=== PATIENT | female | born 1980 | race Caucasian/White ===

== ENCOUNTER 2018-11-10 17:18 | Emergency (ER) | payer MEDICAID, OTHER ==
[~2018-11-10] VITALS: Ht 160 cm; Wt 72.6 kg
--- NOTE | 2018-11-10 17:42 | ED General ---
General Chief Complaint: Abdominal/GI Problems Stated Complaint: BODY ACHES,VOMITING Source of Information: Patient Exam Limitations: No Limitations (SONIA IVEY MD) History of Present Illness Date Seen by Provider: Nov 10, 2018 Time Seen by Provider: 17:37 Initial Comments Onset yesterday of mild throbbing pulsating headache, myalgia, arthralgia, decreased appetite, nausea, diaphoresis this morning and emesis x 6 of fluid contents. She describes cramping abdominal pain, but her menses began yesterday also, so no real focal abdominal pain. Denies prodrome other than abscess left buttock three days ago. Has had these before but not as bad. Unknown history of MRSA. Has uses warm compresses to express discharge. Exam demonstrates pointing abscess will some dependent firmness gradient dependent tissue c/w ad jacent cellulitis. Denies respiratory symptoms. Lightheaded on standing this morning. Appetite change and suppressed due to nausea. No change in bowels and no dysuria. Severity: Moderate Associated Systoms: Diaphoresis, Headaches, Loss of Appetite, Malaise, Nausea/Vomiting, Weakness (SONIA IVEY MD) Allergies and Home Medications Allergies Coded Allergies: No Known Drug Allergies (Unverified , 11/10/18) Home Medications Clindamycin HCl 150 Mg Capsule, 300 MG PO Q6H Prescribed by: EVELYN STEVENS on 11/10/181844 Famotidine 20 Mg Tablet, 20 MG PO BID Prescribed by: EVELYN STEVENS on 11/10/181844 Ondansetron 4 Mg Tab.rapdis, 4 MG PO Q6H PRN for NAUSEA/VOMITING Prescribed by: EVELYN STEVENS on 11/10/181844 Patient Home Medication List Home Medication List Reviewed: Yes (EVELYN STEVENS DO) Review of Systems Review of Systems EENTM: see HPI Respiratory: no symptoms reported Cardiovascular: see HPI Gastrointestinal: see HPI Genitourinary: no symptoms reported : No Musculoskeletal: see HPI, joint pain, muscle pain Skin: see HPI, lesions, other Psychiatric/Neurological: No Symptoms Reported Hematologic/Lymphatic: No Symptoms Reported Immunological/Allergic: no symptoms reported (SONIA IVEY MD) Constitutional: see HPI (EVELYN STEVENS DO) All Other Systems Reviewed Negative Unless Noted: Yes (SONIA IVEY MD) Physical Exam Vital Signs Vital Signs - First Documented 11/10/18 17:20 Temp 99.8 Pulse 92 Resp 20 B/P (MAP) 109/51 (70) Pulse Ox 98 O2 Delivery Room Air (EVELYN STEVENS DO) Vital Signs Capillary Refill : (SONIA IVEY MD) Height, Weight, BMI Height: '" Weight: lbs. oz. kg; BMI Method: General Appearance: No Apparent Distress Eyes: Bilateral Eye Normal Inspection, Bilateral Eye PERRL, Bilateral Eye EOMI HEENT: PERRL/EOMI, Normal ENT Inspection, Moist Mucous Membranes Neck: Full Range of Motion, Normal Inspection, Non Tender, Supple Respiratory: No Accessory Muscle Use, No Respiratory Distress Cardiovascular: Regular Rate, Rhythm, No Edema Gastrointestinal: Non Tender Back: Normal Inspection Extremity: Normal Capillary Refill, Normal Inspection, Normal Range of Motion, Non Tender, No Calf Tenderness, No Pedal Edema Neurologic/Psychiatric: Alert, Oriented x3, No Motor/Sensory Deficits, Normal Mood/Affect Skin: Erythema (SONIA IVEY MD) Procedures/Interventions I&D : Blade Size: 11 Progress Obtained fairly large amount of purulent discharge. C&S was obtained. Was probed for loculations. Deferred placing packing. (EVELYN STEVENS DO) Progress/Results/Core Measures Suspected Sepsis SIRS Temperature: Pulse: Respiratory Rate: Blood Pressure / Mean: (SONIA IVEY MD) Results/Orders Lab Results Laboratory Tests Test 11/10/18 17:30 Range/Units White Blood Count 10.7 4.3-11.0 10^3/uL Red Blood Count 4.31 L 4.35-5.85 10^6/uL Hemoglobin 9.9 L 11.5-16.0 G/DL Hematocrit 33 L 35-52 % Mean Corpuscular Volume 78 L 80-99 FL Mean Corpuscular Hemoglobin 23 L 25-34 PG Mean Corpuscular Hemoglobin Concent 30 L 32-36 G/DL Red Cell Distribution Width 16.6 H 10.0-14.5 % Platelet Count 333 130-400 10^3/uL Mean Platelet Volume 9.4 7.4-10.4 FL Neutrophils (%) (Auto) 77 H 42-75 % Lymphocytes (%) (Auto) 15 12-44 % Monocytes (%) (Auto) 6 0-12 % Eosinophils (%) (Auto) 1 0-10 % Basophils (%) (Auto) 1 0-10 % Neutrophils # (Auto) 8.3 H 1.8-7.8 X 10^3 Lymphocytes # (Auto) 1.6 1.0-4.0 X 10^3 Monocytes # (Auto) 0.7 0.0-1.0 X 10^3 Eosinophils # (Auto) 0.1 0.0-0.3 10^3/uL Basophils # (Auto) 0.1 0.0-0.1 10^3/uL Neutrophils % (Manual) 66 % Lymphocytes % (Manual) 19 % Monocytes % (Manual) 6 % Eosinophils % (Manual) 2 % Band Neutrophils 7 % Hypochromasia 2+ Microcytosis 3+ Elliptocytes SLIGHT Sodium Level 139 135-145 MMOL/L Potassium Level 3.7 3.6-5.0 MMOL/L Chloride Level 100 98-107 MMOL/L Carbon Dioxide Level 23 21-32 MMOL/L Anion Gap 16 H 5-14 MMOL/L Blood Urea Nitrogen 6 L 7-18 MG/DL Creatinine 0.69 0.60-1.30 MG/DL Estimat Glomerular Filtration Rate > 60 BUN/Creatinine Ratio 9 Glucose Level 97 70-105 MG/DL Calcium Level 9.3 8.5-10.1 MG/DL Corrected Calcium 8.5-10.1 MG/DL Total Bilirubin 0.5 0.1-1.0 MG/DL Aspartate Amino Transf (AST/SGOT) 18 5-34 U/L Alanine Aminotransferase (ALT/SGPT) 14 0-55 U/L Alkaline Phosphatase 80 40-136 U/L Total Protein 7.9 6.4-8.2 GM/DL Albumin 4.8 H 3.2-4.5 GM/DL (EVELYN STEVENS DO) My Orders Orders - EVELYN STEVENS DO Wound Culture (11/10/18 18:28) Ondansetron Injection (Zofran Injectio (11/10/18 18:30) Famotidine Injection (Pepcid Injection) (11/10/18 18:30) Clindamycin 900 Mg/50 Ml Ivpb (Cleocin P (11/10/18 18:30) (EVELYN STEVENS DO) Medications Given in ED (EVELYN STEVENS DO) Vital Signs/I&O 7/22/19 00:00 Intake Total 50 ml Balance 50 ml (EVELYN STEVENS DO) Vital Signs/I&O Capillary Refill : (SONIA IVEY MD) Departure Impression Primary Impression: Abscess Additional Impressions: Anemia N&V (nausea and vomiting) Disposition: HOME, SELF-CARE Condition: Improved Departure-Patient Inst. Referrals: MAITE AGUERO MD (PCP/Family) Primary Care Physician Patient Instructions: Abscess Incision and Drainage (DC), Anemia Caused by Low Iron, Nausea and Vomiting, Adult Scripts Clindamycin HCl (Clindamycin HCl) 150 Mg Capsule 300 MG PO Q6H for 10 Days, #80 CAP 0 Refills Prov: EVELYN STEVENS DO 11/10/18 Ondansetron (Ondansetron Odt) 4 Mg Tab.rapdis 4 MG PO Q6H PRN for NAUSEA/VOMITING, #10 TAB 0 Refills Prov: EVELYN STEVENS DO 11/10/18 Famotidine (Pepcid) 20 Mg Tablet 20 MG PO BID for 5 Days, #10 TAB 0 Refills Prov: EVELYN STEVENS DO 11/10/18 SONIA IVEY MD Nov 10, 2018 17:42 EVELYN STEVENS DO Nov 10, 2018 18:41
[2018-11-10 18:01] LABS: HEMATOCRIT 33 % (35-52); HEMOGLOBIN 9.9 G/DL (11.5-16.0); MEAN CORPUSCULAR HEMOGLOBIN 23 PG (25-34); WHITE BLOOD COUNT 10.7 10^3/uL (4.3-11.0)
[2018-11-10 18:02] LABS: BAND NEUTROPHILS 7 %; BASOPHILS # (AUTO) 0.1 10^3/uL (0.0-0.1); BASOPHILS % (AUTO) 1 % (0-10); EOSINOPHILS # (AUTO) 0.1 10^3/uL (0.0-0.3); EOSINOPHILS % (AUTO) 1 % (0-10); LYMPHOCYTES # (AUTO) 1.6 X 10^3 (1.0-4.0); LYMPHOCYTES % (AUTO) 15 % (12-44); MEAN CORPUSCULAR HGB CONC 30 G/DL (32-36); MEAN CORPUSCULAR VOLUME 78 FL (80-99); MEAN PLATELET VOLUME 9.4 FL (7.4-10.4); MONOCYTES # (AUTO) 0.7 X 10^3 (0.0-1.0); MONOCYTES % (AUTO) 6 % (0-12); NEUTROPHILS # (AUTO) 8.3 X 10^3 (1.8-7.8); NEUTROPHILS % (AUTO) 77 % (42-75); NEUTROPHILS % (MANUAL) 66 %; PLATELET COUNT 333 10^3/uL (130-400); RED CELL DISTRIBUTION WIDTH 16.6 % (10.0-14.5)
[2018-11-10 18:03] LABS: ELLIPT/OVALOCYTES SLIGHT; EOSINOPHILS % (MANUAL) 2 %; HYPOCHROMASIA 2+; LYMPHOCYTES % (MANUAL) 19 %; MICROCYTOSIS 3+; MONOCYTES % (MANUAL) 6 %
[2018-11-10 18:10] LABS: ALKALINE PHOSPHATASE 80 U/L (40-136); BILIRUBIN,TOTAL 0.5 MG/DL (0.1-1.0); BUN/CREATININE RATIO 9; CALCIUM 9.3 MG/DL (8.5-10.1); CARBON DIOXIDE 23 MMOL/L (21-32); CHLORIDE 100 MMOL/L (98-107); CREATININE SERUM 0.69 MG/DL (0.60-1.30); GFR ESTIMATED > 60; GLUCOSE 97 MG/DL (70-105); POTASSIUM 3.7 MMOL/L (3.6-5.0); SODIUM 139 MMOL/L (135-145)
[2018-11-10 18:11] LABS: ALANINE AMINOTRANSFERASE 14 U/L (0-55); ALBUMIN 4.8 GM/DL (3.2-4.5); TOTAL PROTEIN 7.9 GM/DL (6.4-8.2)
[2018-11-10] MEDS ORDERED: ONDANSETRON 4 MG/2 ML (SDV) Z0FRAN IVP ONE (18:30)
[2018-11-10] MEDS ORDERED: FAMOTIDINE 20MG/2ML IV (PEPCID) ONE (18:30)
[2018-11-10] MEDS ORDERED: ONDANSETRON 4 MG/2 ML (SDV) Z0FRAN ONE (18:30)
[2018-11-10] MEDS ORDERED: FAMOTIDINE 20MG/2ML IV (PEPCID) IVP ONE (18:30)
[2018-11-10] MEDS ORDERED: CLINDAMYCIN 900 MG/50 ML IVPB 50 ML IV ONE ×2 (18:30)
[2018-11-10] MEDS ORDERED: ONDA4TAB11 PO (18:45)
[2018-11-10] MEDS ORDERED: FAMO-119 PO (18:45)
[2018-11-10] MEDS ORDERED: CLIN150C17 PO (18:45)
[2018-11-10 19:11] VITALS: BP 110/52
== END 2018-11-10 19:11 | disposition home or self-care (01) ==
LOC: ER FS 17:18
DX: D64.9 Anemia, unspecified (principal); L02.31 Cutaneous abscess of buttock; R11.2 Nausea with vomiting, unspecified
CPT/HCPCS: 10060; 36415; 80053; 85007; 85027; 87070; 87077; 87205; 96365; 96375

== ENCOUNTER 2018-12-04 19:03 | Emergency (ER) | payer MEDICAID, OTHER ==
[~2018-12-04] VITALS: Ht 160 cm; Wt 72.6 kg
[~2018-12-04 19:03] MED LIST: CLIN150C17 PO; FAMO-119 PO; ONDA4TAB11 PO
--- NOTE | 2018-12-04 19:09 | ED General ---
General Chief Complaint: Cough/Cold/Flu Symptoms Stated Complaint: COUGH, CHEST PAIN, SOB, THROAT PAIN History of Present Illness Date Seen by Provider: Dec 04, 2018 Time Seen by Provider: 19:09 Initial Comments Patient presenting to emergency department for evaluation of a cough that has been going on for the past several days in addition to sore throat. Patient says the cough is nonproductive and she has had no fevers or chills. She denies any history of asthma or lung disease but she does smoke cigarettes. She says that she is coughing so months that it causes her chest hurt when she coughs. She is in no respiratory distress and oxygen saturation of 99%. Allergies and Home Medications Allergies Coded Allergies: No Known Drug Allergies (Unverified , 11/10/18) Home Medications Clindamycin HCl 150 Mg Capsule, 300 MG PO Q6H Prescribed by: EVELYN STEVENS on 11/10/181844 Famotidine 20 Mg Tablet, 20 MG PO BID Prescribed by: EVELYN STEVENS on 11/10/181844 Ondansetron 4 Mg Tab.rapdis, 4 MG PO Q6H PRN for NAUSEA/VOMITING Prescribed by: EVELYN STEVENS on 11/10/181844 Patient Home Medication List Home Medication List Reviewed: Yes Review of Systems Review of Systems Constitutional: no symptoms reported EENTM: throat pain Respiratory: cough Cardiovascular: chest pain Gastrointestinal: no symptoms reported Musculoskeletal: no symptoms reported Skin: no symptoms reported Psychiatric/Neurological: No Symptoms Reported Past Kaogneq-Onmftv-Zgogiv Hx Patient Social History Type Used: Cigarettes 2nd Hand Smoke Exposure: No Recent Foreign Travel: No Contact w/Someone Who Travel: No Recent Hopitalizations: No Seasonal Allergies Seasonal Allergies: No Past Medical History Surgeries: Yes Appendectomy, Gallbladder, Tonsillectomy, Tubal Ligation Respiratory: No Cardiac: No Neurological: 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 oz. 72.725685bi; BMI Method:Stated General Appearance: No Apparent Distress, WD/WN Eyes: Bilateral Eye Normal Inspection HEENT: Other (pharyngeal erythema with postnasal drip noted) Neck: Non Tender, Supple Respiratory: No Accessory Muscle Use, No Respiratory Distress, Wheezing (in all lung burgos) Cardiovascular: Regular Rate, Rhythm Extremity: Normal Capillary Refill Neurologic/Psychiatric: Alert, Oriented x3 Progress/Results/Core Measures Suspected Sepsis SIRS Temperature: Pulse: Respiratory Rate: Blood Pressure / Mean: Results/Orders My Orders Orders - SONIA BACON DO Albuterol/Ipra Inhalation Soln (Duoneb I (12/04/18 19:15) Svn Small Volume Nebulizer (12/04/18 19:13) Prednisone Tablet (Deltasone Tablet) (12/04/18 19:15) Chest Pa/Lat (2 View) (12/04/18 19:13) Medications Given in ED Current Medications Medications Dose Ordered Sig/Zahraa Route Start Time Stop Time Status Last Admin Dose Admin Albuterol/ Ipratropium 3 ml ONCE ONCE INH 12/04/18 19:15 12/04/18 19:16 DC 12/04/18 19:20 3 ML Prednisone 50 mg ONCE ONCE PO 12/04/18 19:15 12/04/18 19:16 DC 12/04/18 19:22 50 MG Vital Signs/I&O 12/04/18 12/04/18 19:10 19:26 Temp 98.8 Pulse 96 Resp 20 B/P (MAP) 135/63 (87) Pulse Ox 99 99 O2 Delivery Room Air Capillary Refill : Progress Note : Progress Note Patient with respiratory infection and has inspiratory and expiratory wheezing. Will treat with prednisone breathing treatments and check chest x-ray to evaluate for possible pneumonia. X-ray negative for pneumonia but patient does have signs and symptoms of bronchitis. Will go ahead and treat with prednisone and albuterol and Zithromax Nasonex. I told her follow with her primary care provider within 2-3 days to ensure improvement and come back to the ED sooner with worsening pain shortness of breath with or general concerns. Patient also told to avoid smoking. Patient aware and agreeable with plan for discharge and verbalized understanding of the need for short-term follow-up and strict ED return precautions discussed as above. Departure Impression Primary Impression: Bronchitis Disposition: 01 HOME, SELF-CARE Condition: Stable Departure-Patient Inst. Referrals: MAITE AGUERO MD (PCP/Family) Primary Care Physician Patient Instructions: Acute Bronchitis, Adult (DC) Add. Discharge Instructions: All discharge instructions reviewed with patient and/or family. Voiced understanding. Use OTC Nasonex. Scripts Azithromycin (Zithromax) 250 Mg Tablet 250 MG PO DAILY for 5 Days, #6 TAB Prov: SONIA BACON DO 12/04/18 Albuterol Sulfate (PROAIR HFA) 1 Puff Puff 2 PUFF IH Q4H, #1 INHALER 1 PUFF = 90 MCG Prov: SONIA BACON DO 12/04/18 Prednisone (Prednisone) 20 Mg Tab 40 MG PO DAILY for 4 Days, #8 TAB 0 Refills Prov: SONIA BACON DO 12/04/18 Work/School Note: Work Release Form Date Seen in the Emergency Department: Dec 04, 2018 Return to Work: Dec 06, 2018 SONIA BACON DO Dec 04, 2018 19:09
[2018-12-04] MEDS ORDERED: predniSONE 20 MG TAB PO ONE (19:15)
[2018-12-04] MEDS ORDERED: RT-ALBUTEROL/IPRATROPIUM 3 ML (DUONEB) VIAL INH ONE (19:15)
--- NOTE | 2018-12-04 19:26 | Diagnostic Imaging Report ---
EXAMINATION: Chest, 2 views. HISTORY: Sore throat and cough. COMPARISON: No comparison available. FINDINGS: The lungs are clear. No edema. No pneumonia. No pleural effusion. No pneumothorax. Heart is normal in size. IMPRESSION: Clear lungs. Dictated by: Dictated on workstation # [id number]
[2018-12-04] MEDS ORDERED: RT-ALBUINH IH (19:41)
[2018-12-04] MEDS ORDERED: AZIT250T PO (19:41)
[2018-12-04] MEDS ORDERED: PRD20T PO (19:41)
[2018-12-04 19:44] VITALS: BP 135/63
== END 2018-12-04 19:45 | disposition home or self-care (01) ==
LOC: EDUNIT# 19:03 → ER FS 19:05
DX: J40 Bronchitis, not specified as acute or chronic (principal); F17.210 Nicotine dependence, cigarettes, uncomplicated; Z90.49 Acquired absence of other specified parts of digestive tract; Z98.51 Tubal ligation status; Z90.89 Acquired absence of other organs
CPT/HCPCS: 71046; 94640

== ENCOUNTER 2019-03-11 15:15 | Emergency (ER) | payer MEDICAID ==
[~2019-03-11] VITALS: Ht 160 cm; Wt 75.4 kg
[~2019-03-11 15:15] MED LIST changes: +AZIT250T PO; +PRD20T PO; +RT-ALBUINH IH
--- NOTE | 2019-03-11 15:43 | ED Upper Extremity ---
General Chief Complaint: Upper Extremity Stated Complaint: RT ELBOW PAIN Source: patient Exam Limitations: no limitations History of Present Illness Date Seen by Provider: Mar 11, 2019 Time Seen by Provider: 15:15 Initial Comments The patient is a pleasant 39-year-old female who presents for evaluation of right lateral elbow discomfort which has been bothering her for a month. 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 She does not recall a specific injury. She describes it as more of a soreness than a severe pain. She does have full range of motion of the right elbow she denies any previous problems with the elbow. She is alert and oriented 4, calm, and appears to be in no distress this time. She denies fevers or chills, elbow swelling, or any other complaints. Pain/Injury Location: right elbow Method of Injury: unknown Modifying Factors: Improves With Cold Therapy, Improves With Movement (makes it worse) Allergies and Home Medications Allergies Coded Allergies: No Known Drug Allergies (Unverified , 11/10/18) Home Medications Albuterol Sulfate 1 Puff Puff, 2 PUFF IH Q4H 1 PUFF = 90 MCG Prescribed by: SONIA BACON on 12/04/181940 Azithromycin 250 Mg Tablet, 250 MG PO DAILY Prescribed by: SONIA BACON on 12/04/181940 Clindamycin HCl 150 Mg Capsule, 300 MG PO Q6H Prescribed by: EEVLYN STEVENS on 11/10/181844 Famotidine 20 Mg Tablet, 20 MG PO BID Prescribed by: EVELYN STEVENS on 11/10/181844 Ondansetron 4 Mg Tab.rapdis, 4 MG PO Q6H PRN for NAUSEA/VOMITING Prescribed by: EVELYN STEVENS on 11/10/181844 Prednisone 20 Mg Tab, 40 MG PO DAILY Prescribed by: SONIA BACON on 12/04/181940 Patient Home Medication List Home Medication List Reviewed: Yes Review of Systems Constitutional: no symptoms reported EENTM: no symptoms reported Respiratory: no symptoms reported Cardiovascular: no symptoms reported Gastrointestinal: no symptoms reported Genitourinary: no symptoms reported Musculoskeletal: joint pain (right elbow) Skin: no symptoms reported Psychiatric/Neurological: No Symptoms Reported All Other Systems Reviewed Negative Unless Noted: Yes Past Jiaqpbg-Gifgnj-Udfeaq Hx Past Med/Social Hx: Reviewed Nursing Past Med/Soc Hx Patient Social History Alcohol Use: Denies Use Recreational Drug Use: No Smoking Status: Current Everyday Smoker Type Used: Cigarettes 2nd Hand Smoke Exposure: No Recent Foreign Travel: No Recent Hopitalizations: No Physical Abuse: No Sexual Abuse: No Mistreated: No Fear: No Seasonal Allergies Seasonal Allergies: No Past Medical History Surgeries: Yes Appendectomy, Gallbladder, Tonsillectomy, Tubal Ligation Respiratory: No Cardiac: No Neurological: 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 oz. 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, no motor/sensory deficits, alert, normal mood/affect, oriented x 3 Skin: normal color, warm/dry Progress/Results/Core Measures Results/Orders My Orders Orders - CECILY BACA DO Elbow 3 View Right (03/11/19 15:27) Ice: Apply To Affected Area (03/11/19 15:27) Ibuprofen Tablet (Motrin Tablet) (03/11/19 15:45) Medications Given in ED Current Medications Medications Dose Ordered Sig/Zahraa Route Start Time Stop Time Status Last Admin Dose Admin Ibuprofen 600 mg ONCE ONCE PO 03/11/19 15:45 03/11/19 15:46 DC 03/11/19 15:38 600 MG Vital Signs/I&O 03/11/19 15:20 Temp 36.3 Pulse 84 Resp 16 B/P (MAP) 134/96 (109) Pulse Ox 99 O2 Delivery Room Air Progress Progress Note : Progress Note @1553 - Patient updated on imaging results which were unremarkable. The patient has been placed in an Jag wrap. Advised patient to purchase a tennis elbow brace at a pharmacy for additional support. Advised patient to follow-up with orthopedics and/or her primary care physician in the next 1-2 days. Advised her to return to the emergency department immediately for new or worsening symptoms. The patient expresses verbal understanding and agreement and is stable for discharge. Diagnostic Imaging Diagonstic Imaging: Xray Comments [facility]. POS [place], [place] POS NAME: [facility] REC#: [id number] PT STATUS: REG ER : 1980 PHYSICIAN: CECILY BACA DO ADMIT DATE: 03/11/19/ER FS Draft POSDate of Exam:03/11/19 ELBOW 3 VIEW RIGHT INDICATION: Right elbow pain. TIME OF EXAM: 3:12 p.m. FINDINGS: Three views of the right elbow were obtained. Alignment is normal. Joint spaces are well maintained. No fracture, dislocation, or effusion is seen. IMPRESSION: No acute bony abnormality is detected. Dictated on workstation # [id number] Dict: 03/11/19 1545 Trans: 03/11/19 1546 [id number] Interpreted by: MEG EDOUARD MD Electronically signed by: Departure Impression Primary Impression: Lateral epicondylitis, right elbow Additional Impression: Right elbow pain Disposition: 01 HOME, SELF-CARE Condition: Stable Departure-Patient Inst. Decision time for Depature: 15:49 Referrals: MAITE AGUERO MD (PCP/Family) Primary Care Physician KATIE WELLS MD Patient Instructions: Lateral Epicondylitis (DC), Elbow Sprain (DC) Add. Discharge Instructions: Follow-up with your doctor or with Dr. Wells from orthopedics in the next 1-2 days. As discussed you may want to apply a tennis elbow brace to your right elbow for additional comfort. Return to the emergency department for new or worsening symptoms. Take ibuprofen at home for pain relief. Work/School Note: Work Release Form Date Seen in the Emergency Department: Mar 11, 2019 Return to Work: Mar 12, 2019 CECILY BACA DO Mar 11, 2019 15:43 POS
[2019-03-11] MEDS ORDERED: IBUPROFEN 600 MG (MOTRIN) TAB PO ONE (15:45)
--- NOTE | 2019-03-11 15:46 | Diagnostic Imaging Report ---
INDICATION: Right elbow pain. TIME OF EXAM: 3:12 p.m. FINDINGS: Three views of the right elbow were obtained. Alignment is normal. Joint spaces are well maintained. No fracture, dislocation, or effusion is seen. IMPRESSION: No acute bony abnormality is detected. Dictated by: Dictated on workstation # [id number]
[2019-03-11 16:05] VITALS: BP 134/96
== END 2019-03-11 16:05 | disposition home or self-care (01) ==
LOC: EDUNIT# 15:15 → ER FS 15:16
DX: M77.11 Lateral epicondylitis, right elbow (principal); F41.9 Anxiety disorder, unspecified; F32.9 Major depressive disorder, single episode, unspecified; F17.210 Nicotine dependence, cigarettes, uncomplicated; Z79.52 Long term (current) use of systemic steroids; Z90.49 Acquired absence of other specified parts of digestive tract; Z98.51 Tubal ligation status; Z90.89 Acquired absence of other organs
CPT/HCPCS: 73080

== ENCOUNTER 2019-04-17 11:39 | Emergency (ER) | payer MEDICAID ==
[~2019-04-17] VITALS: Ht 160 cm; Wt 75.0 kg
--- NOTE | 2019-04-17 12:05 | Diagnostic Imaging Report ---
INDICATION: Right foot injury. Time of exam 11:34 AM 3 views of the right foot were obtained. The metatarsals are intact. Phalanges appear to be intact. Midfoot and hindfoot are unremarkable apart from a small plantar calcaneal spur. No fractures are seen. IMPRESSION: No acute bony abnormality is detected. Dictated by: Dictated on workstation # [id number]
--- NOTE | 2019-04-17 12:56 | ED Lower Extremity ---
General Chief Complaint: Lower Extremity Stated Complaint: RT FOOT INJ Nursing Triage Note: Pt presents to ED with child accompanying. Pt limping and reports R foot injury yesterday falling off dgt's Hoverboard. Pain with weight bearing. Nursing Sepsis Screen: No Definite Risk Source: patient, family Exam Limitations: no limitations History of Present Illness Date Seen by Provider: Apr 17, 2019 Time Seen by Provider: 12:51 Initial Comments This 39-year-old female presents of sustaining an inversion injury to her right foot when she fell off the board yesterday. Patient is complaining of pain over the lateral aspect of the right forefoot. She denies ankle pain. She denies injury to the right knee or hip. She denies injury to the left lower extremity. She denies other injury or accident. Patient is describing sharp pain made worse by applying pressure or weightbearing. Allergies and Home Medications Allergies Coded Allergies: No Known Drug Allergies (Unverified , 11/10/18) Home Medications Albuterol Sulfate 1 Puff Puff, 2 PUFF IH Q4H 1 PUFF = 90 MCG Prescribed by: SONIA BACON on 12/04/181940 Azithromycin 250 Mg Tablet, 250 MG PO DAILY Prescribed by: SONIA BACON on 12/04/181940 Clindamycin HCl 150 Mg Capsule, 300 MG PO Q6H Prescribed by: EVELYN STEVENS on 11/10/181844 Famotidine 20 Mg Tablet, 20 MG PO BID Prescribed by: EVELYN STEVENS on 11/10/181844 Ondansetron 4 Mg Tab.rapdis, 4 MG PO Q6H PRN for NAUSEA/VOMITING Prescribed by: EVELYN STEVENS on 11/10/181844 Prednisone 20 Mg Tab, 40 MG PO DAILY Prescribed by: SONIA BACON on 12/04/181940 Patient Home Medication List Home Medication List Reviewed: Yes Review of Systems Constitutional: No chills, No fever EENTM: no symptoms reported Respiratory: no symptoms reported Cardiovascular: no symptoms reported Gastrointestinal: no symptoms reported Genitourinary: no symptoms reported Musculoskeletal: see HPI Skin: no symptoms reported Psychiatric/Neurological: No Symptoms Reported Past Ahcdwrr-Mgflsa-Brjpck Hx Past Med/Social Hx: Reviewed Nursing Past Med/Soc Hx Patient Social History Alcohol Use: Denies Use Recreational Drug Use: No Smoking Status: Current Everyday Smoker Type Used: Cigarettes 2nd Hand Smoke Exposure: No Recent Foreign Travel: No Contact w/Someone Who Travel: No Recent Infectious Disease Expo: No Recent Hopitalizations: No Physical Abuse: No Sexual Abuse: No Mistreated: No Fear: No Seasonal Allergies Seasonal Allergies: No Past Medical History Surgeries: Yes Appendectomy, Gallbladder, Tonsillectomy, Tubal Ligation Respiratory: No Cardiac: No Neurological: No : No Last Menstrual Period: Apr 01, 2019 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 oz. 72.905477zz; 29.00 BMI Method:Stated General Appearance: WD/WN, mild distress HEENT: normal ENT inspection Neck: normal inspection Cardiovascular: regular rate, rhythm Respiratory: normal breath sounds Gastrointestinal: normal bowel sounds Feet: right foot pain (over the lateral aspect of the right forefoot.) Neurologic/Psychiatric: no motor/sensory deficits, alert, normal mood/affect Skin: normal color, warm/dry Progress/Results/Core Measures Results/Orders My Orders Orders - JOSE BROOKE MD Foot 3 View Right (04/17/19 11:50) Vital Signs/I&O 04/17/19 11:44 Temp 36.7 Pulse 77 Resp 16 B/P (MAP) 112/59 (76) O2 Delivery Room Air Blood Pressure Mean: 76 Progress Progress Note : Time: 12:53 Progress Note The x-rays right foot films shows fracture dislocation. The patient elected to use a cam walker which she had at home for comfort. I recommended ibuprofen for pain. Departure Impression Primary Impression: Sprain or strain of foot Disposition: 01 HOME, SELF-CARE Condition: Improved Departure-Patient Inst. Decision time for Depature: 12:54 Referrals: MAITE AGUERO MD (PCP/Family) Primary Care Physician Patient Instructions: Foot Sprain (DC) Add. Discharge Instructions: Ibuprofen for pain. Home splint for support. All discharge instructions reviewed with patient and/or family. Follow-up with her doctor on Sunday for recheck. Return if any problems or questions Voiced understanding. JOSE BROOKE MD Apr 17, 2019 12:55
[2019-04-17 13:15] VITALS: BP 110/60
--- NOTE | 2019-04-17 13:15 | NUR ---
Dismissed with review of home instructions verbalized and refusal of ortho post op shoe. Pt has a Cam Boot walker at home and wished to wear. reports this is fine till comfort from healing allows it off.
== END 2019-04-17 13:15 | disposition home or self-care (01) ==
LOC: EDUNIT# 11:39 → ER FS 11:40
DX: S93.601A Unspecified sprain of right foot, initial encounter (principal); F41.9 Anxiety disorder, unspecified; F32.9 Major depressive disorder, single episode, unspecified; F17.210 Nicotine dependence, cigarettes, uncomplicated; Z90.49 Acquired absence of other specified parts of digestive tract; Z90.89 Acquired absence of other organs; Z98.51 Tubal ligation status; Z79.52 Long term (current) use of systemic steroids; V00.181A Fall from other rolling-type pedestrian conveyance, initial encounter
CPT/HCPCS: 73630

== ENCOUNTER 2019-11-04 11:24 | Emergency (ER) | payer MEDICAID ==
[~2019-11-04] VITALS: Ht 160 cm; Wt 74.8 kg
--- NOTE | 2019-11-04 11:33 | ED Back Pain ---
General Chief Complaint: Back Problems Stated Complaint: BACK PAIN Source of Information: Patient, RN/MD Exam Limitations: No Limitations History of Present Illness Date Seen by Provider: Nov 04, 2019 Time Seen by Provider: 11:25 Initial Comments This patient is a 39-year-old female presents to the emergency department with complaint of bilateral lower back pain patient states she has a history of low back issues and bulging disc states for the past day or so as been increasing pain and this morning has bilateral numbness to her upper lateral thighs. Patient states very stiff to move. We'll do medical evaluation treatment is needed. Location: Lumbar Spine Timing/Duration: 1-2 Days Pain/Injury Location: Back Radiation: Upper Legs Associated Symptoms: numbness in legs/feet, lower back pain Allergies and Home Medications Allergies Coded Allergies: No Known Drug Allergies (Unverified , 11/10/18) Home Medications Albuterol Sulfate 1 Puff Puff, 2 PUFF IH Q4H 1 PUFF = 90 MCG Prescribed by: SONIA BACON on 12/04/181940 Azithromycin 250 Mg Tablet, 250 MG PO DAILY Prescribed by: SONIA BACON on 12/04/181940 Clindamycin HCl 150 Mg Capsule, 300 MG PO Q6H Prescribed by: EVELYN STEVENS on 11/10/181844 Famotidine 20 Mg Tablet, 20 MG PO BID Prescribed by: EVELYN STEVENS on 11/10/181844 Ondansetron 4 Mg Tab.rapdis, 4 MG PO Q6H PRN for NAUSEA/VOMITING Prescribed by: EVELYN STEVENS on 11/10/181844 Prednisone 20 Mg Tab, 40 MG PO DAILY Prescribed by: SONIA BACON on 12/04/181940 Patient Home Medication List Home Medication List Reviewed: Yes Review of Systems Constitutional: No no symptoms reported, No see HPI, No chills, No diaphoresis, No dizziness, No fever, No malaise, No weakness, No weight gain, No weight loss, No other EENTM: No see HPI, No no symptoms reported, No ear discharge, No hearing loss, No ear pain, No blurred vision, No double vision, No eye pain, No tearing, No vision loss, No dental problems, No hoarseness, No mouth pain, No mouth swelling, No epistaxis, No nose congestion, No nose pain, No throat pain, No throat swelling, No other Respiratory: No no symptoms reported, No see HPI, No cough, No dyspnea on exertion, No hemoptysis, No orthopnea, No phlegm, No short of breath, No stridor, No wheezing, No other Cardiovascular: No no symptoms reported, No see HPI, No chest pain, No edema, No Hx of Intervention, No palpitations, No syncope, No vascular heart diseas, No other Gastrointestinal: No RUQ, No LUQ, No RLQ, No LLQ, No no symptoms reported, No see HPI, No abdominal pain, No constipation, No diarrhea, No dysphagia, No hematemesis, No heartburn, No jaundice, No loss of appetite, No melena, No nausea, No vomiting, No other Musculoskeletal: see HPI, back pain Skin: No no symptoms reported, No see HPI, No change in color, No change in hair/nails, No dryness, No hx of skin cancer, No lesions, No lumps, No pruritus, No rash, No other Psychiatric/Neurological: Denies No Symptoms Reported, Denies See HPI, Denies Anxiety, Denies Depressed, Denies Emotional Problems, Denies Headache, Denies Numbness; Paresthesia; Denies Pre-Existing Deficit, Denies Seizure, Denies Tingling, Denies Tremors, Denies Weakness, Denies Other Past Mwmhpjz-Tbxboy-Tgiwod Hx Patient Social History Type Used: Cigarettes 2nd Hand Smoke Exposure: No Recent Foreign Travel: No Contact w/Someone Who Travel: No Recent Hopitalizations: No Seasonal Allergies Seasonal Allergies: No Past Medical History Surgeries: Yes Appendectomy, Gallbladder, Tonsillectomy, Tubal Ligation Respiratory: No Cardiac: No Neurological: No 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 oz. 72.461508vr; 29.00 BMI Method:Stated General Appearance: No Apparent Distress, WD/WN Cardiovascular: Regular Rate, Rhythm, No Edema, No Gallop, No JVD, No Murmur, Normal Peripheral Pulses Respiratory: Chest Non Tender, Lungs Clear, Normal Breath Sounds, No Accessory Muscle Use, No Respiratory Distress Gastrointestinal: Normal Bowel Sounds, No Organomegaly, No Pulsatile Mass, Non Tender, Soft Back: Normal Inspection, No CVA Tenderness, No Vertebral Tenderness, Decreased Range of Motion, Other (patient states bilateral lower back pain.) Extremity: Normal Capillary Refill, Normal Inspection, Normal Range of Motion, Non Tender, No Calf Tenderness, No Pedal Edema Neurologic/Psychiatric: Alert, Oriented x3, No Motor/Sensory Deficits, Normal Mood/Affect, 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 Radiating from her back) Progress/Results/Core Measures Results/Orders Lab Results Laboratory Tests Test 11/04/19 11:37 Range/Units Urine Color YELLOW Urine Clarity SLIGHTLY CLOUDY Urine pH 5.5 5-9 Urine Specific [place] >1.030 1.016-1.022 Urine Protein NEGATIVE NEGATIVE Urine Glucose (UA) NEGATIVE NEGATIVE Urine Ketones NEGATIVE NEGATIVE Urine Nitrite NEGATIVE NEGATIVE Urine Bilirubin 1+ H NEGATIVE Urine Urobilinogen 0.2 < = 1.0 MG/DL Urine Leukocyte Esterase 1+ H NEGATIVE Urine RBC (Auto) 1+ H NEGATIVE Urine RBC 10-25 H /HPF Urine WBC 25-50 H /HPF Urine Squamous Epithelial Cells TNTC H /HPF Urine Crystals NONE /LPF Urine Bacteria MODERATE H /HPF Urine Casts NONE /LPF Urine Mucus NEGATIVE /LPF Urine Culture Indicated YES Urine Test NEGATIVE NEGATIVE My Orders Orders - JAXSON DUBON MD Ct Lumbar Spine Wo (11/04/19 11:30) Hcg,Qualitative Urine (11/04/19 11:30) Urinalysis (11/04/19 11:30) Ketorolac Injection (Toradol Injection) (11/04/19 11:45) Orphenadrine Inj (Ed Only) (Norflex Inje (11/04/19 11:45) Urine Culture (11/04/19 11:37) Medications Given in ED Current Medications Medications Dose Ordered Sig/Zahraa Route Start Time Stop Time Status Last Admin Dose Admin Ketorolac Tromethamine 60 mg ONCE ONCE IM 11/04/19 11:45 11/04/19 11:46 DC 11/04/19 11:42 60 MG Orphenadrine Citrate 60 mg ONCE ONCE IM 11/04/19 11:45 11/04/19 11:46 DC 11/04/19 11:43 60 MG Vital Signs/I&O 11/04/19 11:30 Temp 36.3 Pulse 100 Resp 18 B/P (MAP) 118/61 (80) Pulse Ox 98 O2 Delivery Room Air Progress Progress Note : Time: 12:[address] Lum[facility] Sp[facility] IMPRESSION: 1. Negative for acute bony abdomen about the lumbar spine. 2. Disc and osteophyte formation does result in bilateral foraminal narrowing and left ventral spinal canal narrowing at the L5-S1 level. Tylenol Motrin when necessary as needed for pain. Patient be given a prescription for diclofenac. Patient should see PCP in next 2-3 days and asked for referral to neurosurgery. Patient should avoid lifting weights greater than 10 pounds. Departure Impression Primary Impression: Lumbar radiculopathy Additional Impression: Bulging disc Disposition: 01 HOME, SELF-CARE Condition: Stable Departure-Patient Inst. Decision time for Depature: 12:45 Referrals: MAITE AGUERO MD (PCP/Family) Primary Care Physician Patient Instructions: Herniated Disc (DC) Add. Discharge Instructions: Tylenol Motrin when necessary as needed for pain. Patient be given a prescription for diclofenac. Patient should see PCP in next 2-3 days and asked for referral to neurosurgery. Patient should avoid lifting weights greater than 10 pounds. All discharge instructions reviewed with patient and/or family. Voiced understanding. Scripts Diclofenac Sodium (Diclofenac Sodium) 75 Mg Tablet. 75 MG PO BID for 10 Days, #20 TAB 0 Refills Prov: JAXSON DUBON MD 11/04/19 JAXSON DUBON MD Nov 04, 2019 11:33
[2019-11-04] MEDS ORDERED: ORPHENADRINE 60 MG/2 ML (NORFLEX) AMP (ED ONLY) IM ONE (11:45)
[2019-11-04] MEDS ORDERED: KETOROLAC 60 MG/2 ML VIAL IM ONE (11:45)
[2019-11-04 11:58] LABS: BACTERIA,URINE MODERATE /HPF; BILIRUBIN,URINE 1+ (NEGATIVE); CLARITY,URINE SLIGHTLY CLOUDY; COLOR,URINE YELLOW; GLUCOSE, URINE (UA) NEGATIVE (NEGATIVE); KETONES,URINE NEGATIVE (NEGATIVE); LEUKOCYTE ESTERASE ,URINE 1+ (NEGATIVE); NITRITE,URINE NEGATIVE (NEGATIVE); PH,URINE 5.5 (5-9); PROTEIN,URINE NEGATIVE (NEGATIVE); WBC,URINE 25-50 /HPF
[2019-11-04 11:59] LABS: SQUAMOUS EPITHELIAL CELL,UR TNTC /HPF
--- OUTSIDE RECORDS SUMMARY | 2019-11-04 12:29 | XMS REPORT | Continuity of Care Document ---
Author Organization Unknown Address Unknown Phone Unavailable Allergies Active Description Code Type Severity Reaction Onset Reported/Identified Relationship to Patient Clinical Status Yes No Known Drug Allergies [id number] Drug Allergy Unknown N/A 11/10/2018 Medications There is no data. Problems Date Dx Coded Attending Type Code Diagnosis Diagnosed By 11/10/2018 SONIA IVEY MD D64.9 ANEMIA, UNSPECIFIED 11/10/2018 SONIA IVEY MD L02.31 CUTANEOUS ABSCESS OF BUTTOCK 11/10/2018 SONIA IVEY MD R11.2 NAUSEA WITH VOMITING, UNSPECIFIED 11/18/2018 SONIA IVEY MD D64.9 ANEMIA, UNSPECIFIED 11/18/2018 SONIA IVEY MD L02.31 CUTANEOUS ABSCESS OF BUTTOCK 11/18/2018 SONIA IVEY MD R11.2 NAUSEA WITH VOMITING, UNSPECIFIED 12/04/2018 SONIA BACON DO, Ot F17.210 NICOTINE DEPENDENCE, CIGARETTES, UNCOMPL 12/04/2018 SONIA BACON DO Ot J40 BRONCHITIS, NOT SPECIFIED ACUTE OR CH 12/04/2018 SONIA BACON DO Ot R05 COUGH 12/04/2018 SONIA BACON DO Ot Z90.49 ACQUIRED ABSENCE OF OTHER SPECIFIED PART 12/04/2018 SONIA BACON DO Ot Z90.89 ACQUIRED ABSENCE OF OTHER ORGANS 12/04/2018 SONIA BCAON DO Ot Z98.51 TUBAL LIGATION STATUS 12/06/2018 SONIA BACON DO, Ot F17.210 NICOTINE DEPENDENCE, CIGARETTES, UNCOMPL 12/06/2018 SONIA BACON DO Ot J40 BRONCHITIS, NOT SPECIFIED ACUTE OR CH 12/06/2018 SONIA BACON DO Ot R05 COUGH 12/06/2018 SONIA BACON DO Ot Z90.49 ACQUIRED ABSENCE OF OTHER SPECIFIED PART 12/06/2018 SONIA BACON DO Ot Z90.89 ACQUIRED ABSENCE OF OTHER ORGANS 12/06/2018 SONIA BACON DO Mayo Ot Z98.51 TUBAL LIGATION STATUS 03/11/2019 CECILY JAIN KEVEN B Ot F17.210 NICOTINE DEPENDENCE, CIGARETTES, UNCOMPL 03/11/2019 KEVEN TONY DO Ot F32. 9 MAJOR DEPRESSIVE DISORDER, SINGLE EPISOD 03/11/2019 CECILY JAIN KEVEN B Ot F41. 9 ANXIETY DISORDER, UNSPECIFIED 03/11/2019 KEVEN TONY DO Ot M25.521 PAIN IN RIGHT ELBOW 03/11/2019 KEVEN TONY DO Ot M77. 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 49 ACQUIRED ABSENCE OF OTHER SPECIFIED PART 03/11/2019 KEVEN TONY DO Ot Z90. 89 ACQUIRED ABSENCE OF OTHER ORGANS 03/11/2019 KEVEN TONY DO Ot Z98. 51 TUBAL LIGATION STATUS 04/17/2019 JOSE BROOKE MD Ot F17.210 NICOTINE DEPENDENCE, CIGARETTES, UNCOMPL 04/17/2019 JOSE BROOKE MD Ot F32. 9 MAJOR DEPRESSIVE DISORDER, SINGLE EPISOD 04/17/2019 JOSE BROOKE MD Ot F41. 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 49 ACQUIRED ABSENCE OF OTHER SPECIFIED PART 04/17/2019 JOSE BROOKE MD Ot Z90. 89 ACQUIRED ABSENCE OF OTHER ORGANS 04/17/2019 JOSE BROOKE MD Ot Z98. 51 TUBAL LIGATION STATUS 04/21/2019 JOSE BROOKE MD Ot F17.210 NICOTINE DEPENDENCE, CIGARETTES, UNCOMPL 04/21/2019 JOSE BROOKE MD Ot F32. 9 MAJOR DEPRESSIVE DISORDER, SINGLE EPISOD 04/21/2019 JOSE BROOKE MD Ot F41. 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 49 ACQUIRED ABSENCE OF OTHER SPECIFIED PART 04/21/2019 JOSE BROOKE MD Ot Z90. 89 ACQUIRED ABSENCE OF OTHER ORGANS 04/21/2019 JOSE BROOKE MD Ot Z98. 51 TUBAL LIGATION STATUS Procedures There is no data. Results Test Result Range Blood CBC with ordered manual differenti al panel - 11/10/18 17:30 Blood leukocytes automated count (number/volume) 10.7 10*3/uL 4.3-11.0 Blood erythrocytes automated count (number/volume) 4.31 10*6/uL 4.35-5.85 Venous blood hemoglobin measurement (mass/volume) 9.9 g/dL 11.5-16.0 Blood hematocrit (volume fraction) 33 % 35-52 Automated erythrocyte mean corpuscular volume 78 [ foz_us] 80-99 Automated erythrocyte mean corpuscular h emoglobin (mass per erythrocyte) 23 pg 25-34 Automated erythrocyte mean corpuscular h emoglobin concentration measurement (mass/volume) 30 g/dL 32-36 Automated erythrocyte distribution width ratio 16. 6 % 10.0- 14.5 Automated blood platelet count (count/volume) 333 10*3/uL 130-400 Automated blood platelet mean volume measurement 9.4 [foz_us] 7.4-10.4 Automated blood neutrophils/100 leukocytes 77 % 42-75 Automated blood lymphocytes/100 leukocytes 15 % 12-44 Blood monocytes/100 leukocytes 6 % NRG Automated blood eosinophils/100 leukocytes 1 % 0-10 Automated blood basophils/100 leukocytes 1 % 0-10 Blood neutrophils automated count (number/volume) 8.3 10*3 1.8-7.8 Blood lymphocytes automated count (number/volume) 1.6 10*3 1.0-4.0 Blood monocytes automated count (number/volume) 0. 7 10*3 0.0-1.0 Automated eosinophil count 0.1 10*3/uL 0 .0-0.3 Automated blood basophil count (count/volume) 0.1 10*3/uL 0.0-0.1 Manual blood segmented neutrophils/100 leukocytes 66 % NRG Blood band neutrophils/100 leukocytes 7 % NRG Manual blood lymphocytes/100 leukocytes 19 % NRG Manual eosinophils/100 leukocytes in nose 2 % NRG Blood ovalocytes detection by light microscopy SLI GHT NRG Blood hypochromia detection by light microscopy 2+ NRG Blood microcytes detection by light microscopy 3+ NRG Comprehensive metabolic panel - 11/10/18 17:30 Serum or plasma sodium measurement (moles/volume) 139 mmol/L 135-145 Serum or plasma potassium measurement (moles/volume) 3.7 mmol/L 3.6-5.0 Serum or plasma chloride measurement (moles/volume) 100 mmol/L 98-107 Carbon dioxide 23 mmol/L 21-32 Serum or plasma anion gap determination (moles/volume) 16 mmol/L 5-14 Serum or plasma urea nitrogen measurement (mass/volume ) 6 mg/dL 7-18 Serum or plasma creatinine measurement (mass/volume) 0.69 mg/dL 0.60-1.30 Serum or plasma urea nitrogen/creatinine mass ratio 9 NRG Serum or plasma creatinine measurement w ith calculation of estimated glomerular filtration rate > NRG Serum or plasma glucose measurement (mass/volume) 97 mg/dL 70-105 Serum or plasma calcium measurement (mass/volume) 9.3 mg/dL 8.5-10.1 Serum or plasma total bilirubin measurement (mass/volu me) 0.5 mg/dL 0.1-1.0 Serum or plasma alkaline phosphatase [place] surement (enzymatic activity/volume) 80 U/L 40-136 Serum or plasma aspartate aminotransfera se measurement (enzymatic activity/volume) 18 U/L 5-34 Serum or plasma alanine aminotransferase measurement (enzymatic activity/volume) 14 U/L 0-55 Serum or plasma protein measurement (mass/volume) 7.9 g/dL 6.4-8.2 Serum or plasma albumin measurement (mass/volume) 4.8 g/dL 3.2-4.5 Gram stain microscopy - 11/10/18 18:30 Gram stain microscopy Few Gram positive cocci in c lusters NRG Bacteria identification in wound by cult ure - 11/10/18 18:30 Bacteria identification in wound by culture [id number] NRG FREE TEXT EXTERNAL NO SUSCEPTIBILITIES SET UP NRG QUANTITY OF GROWTH Isolated NRG Encounters ACCT No. Visit Date/Time Discharge Status Pt. Type Provider Facility Loc./Unit Complaint [id number] 01/02/2019 10:10:00 01/02/2019 23:59: 59 CLS Outpatient AGUERO MAITE M [facility] [id number] 04/17/2019 11:40:00 13:15:00 DIS Emergency MENDY XIONG, JOSE Lomas [facility] ER FS RT FOOT INJ [id number] 03/11/2019 15:16:00 16:05:00 DIS Emergency KEVEN TONY DO [facility] ER FS RT ELBOW PAIN [id number] 12/04/2018 19:05:00 19:45:00 DIS Emergency SONIA BACON DO [facility] ER FS COUGH, CHEST PAIN, SOB, THROAT PAIN [id number] 11/10/2018 17:18:00 19:11:00 DIS Emergency LONI IXONG, VIRGINIA Lindsey [facility] ER FS BODY ACHES, VOMITING [id number] 11/04/2019 11:25:[address] Emergency LING XIONG, JAXSON Sanchez [facility] ER FS BACK PAIN
--- NOTE | 2019-11-04 12:33 | Diagnostic Imaging Report ---
PROCEDURE: CT lumbar spine without contrast. TECHNIQUE: Multiple contiguous axial images were obtained through the lumbar spine without the use of intravenous contrast. Sagittal and coronal reformations were then performed. Auto Exposure Controls were utilized during the CT exam to meet ALARA standards for radiation dose reduction. INDICATION: New-onset bilateral lower extremity pain this morning. No known recent injury. Some chronic back pain. CORRELATION STUDY: None FINDINGS: Lumbar spinal alignment is anatomic. Vertebral body heights are maintained. There are a few very small Schmorl's nodes deformity. Posterior elements intact without spondylolysis or significant spondylolisthesis. L5-S1 level there is significant loss of disc space height and vacuum disc phenomena. Prominent disc and osteophyte complex does result in bilateral foraminal narrowing. There is slight abutting of the exiting nerve roots present. Disc and osteophyte is slightly greater just to the right of midline. This does result in slight right ventral lateral spinal canal narrowing. L4-L5 level with very mild broad-based disc bulge. No findings to suggest significant canal and/or foraminal narrowing. Mild ligamentum hypertrophy. Remaining disc spaces overall are fairly well-maintained without additional areas of canal or foraminal stenosis. Likely prior cholecystectomy and appendectomy. IMPRESSION: 1. Negative for acute bony abdomen about the lumbar spine. 2. Disc and osteophyte formation does result in bilateral foraminal narrowing and left ventral spinal canal narrowing at the L5-S1 level. Dictated by: Dictated on workstation # [id number]
[2019-11-04] MEDS ORDERED: DICL75TA2 PO (12:46)
[2019-11-04 12:50] VITALS: BP 105/50
== END 2019-11-04 12:52 | disposition home or self-care (01) ==
LOC: EDUNIT# 11:24 → ER FS 11:25
DX: M54.16 Radiculopathy, lumbar region (principal); M51.26 Other intervertebral disc displacement, lumbar region; Z79.52 Long term (current) use of systemic steroids
CPT/HCPCS: 72131; 81000; 84703; 87088

== ENCOUNTER 2020-01-07 16:22 | Emergency (ER) | payer MEDICAID ==
[~2020-01-07] VITALS: Ht 160 cm; Wt 74.0 kg
[~2020-01-07 16:22] MED LIST changes: +DICL75TA2 PO
[2020-01-07 16:57] LABS: BILIRUBIN,URINE NEGATIVE (NEGATIVE); CLARITY,URINE CLOUDY; COLOR,URINE YELLOW; GLUCOSE, URINE (UA) NEGATIVE (NEGATIVE); KETONES,URINE NEGATIVE (NEGATIVE); LEUKOCYTE ESTERASE ,URINE 1+ (NEGATIVE); NITRITE,URINE NEGATIVE (NEGATIVE); PROTEIN,URINE 2+ (NEGATIVE); RBC,URINE >100 /HPF
[2020-01-07 16:58] LABS: BACTERIA,URINE MODERATE /HPF; WBC,URINE 25-50 /HPF
--- NOTE | 2020-01-07 17:01 | ED GU-Female ---
General Chief Complaint: - Urinary Stated Complaint: FREQUENT/BURNING URINATION Nursing Triage Note: PT REPORTS FREQUENCY AND BURNING WITH URINATION. Nursing Sepsis Screen: No Definite Risk Source: patient History of Present Illness Date Seen by Provider: Jan 07, 2020 Time Seen by Provider: 17:00 Initial Comments 39-year-old female presenting with complaints of burning and frequency with urination. She states that this started this morning. She does have a history of recurrent urinary tract infections. She reports that she gets them about every 6 months to a year. This feels similar. She did just finish with her menstrual cycle 2-3 days ago. She denies any fever or chills. She denies any pain up in her kidney region. Allergies and Home Medications Allergies Coded Allergies: No Known Drug Allergies (Unverified , 11/10/18) Home Medications Albuterol Sulfate 1 Puff Puff, 2 PUFF IH Q4H 1 PUFF = 90 MCG Prescribed by: SONIA BACON on 12/04/181940 Azithromycin 250 Mg Tablet, 250 MG PO DAILY Prescribed by: SONIA BACON on 12/04/181940 Cephalexin 500 Mg Tablet, 500 MG PO QID Prescribed by: MICK MONTES on 01/07/201718 Clindamycin HCl 150 Mg Capsule, 300 MG PO Q6H Prescribed by: EVELYN STEVENS on 11/10/181844 Diclofenac Sodium 75 Mg Tablet.dr, 75 MG PO BID Prescribed by: JAXSON DUBON on 11/04/19 1246 Famotidine 20 Mg Tablet, 20 MG PO BID Prescribed by: EVELYN STEVENS on 11/10/181844 Ondansetron 4 Mg Tab.rapdis, 4 MG PO Q6H PRN for NAUSEA/VOMITING Prescribed by: EVELYN STEVENS on 11/10/181844 Phenazopyridine HCl 200 Mg Tablet, 200 MG PO TID Prescribed by: MICK MONTES on 01/07/201718 Prednisone 20 Mg Tab, 40 MG PO DAILY Prescribed by: SONIA BACON on 12/04/181940 Patient Home Medication List Home Medication List Reviewed: Yes Review of Systems Review of Systems Constitutional: No chills, No fever EENTM: no symptoms reported Respiratory: no symptoms reported Cardiovascular: no symptoms reported Gastrointestinal: see HPI Genitourinary: see HPI : No LMP: Jan 01, 2020 Musculoskeletal: no symptoms reported Skin: no symptoms reported Psychiatric/Neurological: No Symptoms Reported Past Bfvirnk-Kbxmka-Pzmetu Hx Past Med/Social Hx: Reviewed Nursing Past Med/Soc Hx Patient Social History Alcohol Use: Denies Use Recreational Drug Use: No Smoking Status: Current Everyday Smoker Type Used: Cigarettes 2nd Hand Smoke Exposure: No Recent Foreign Travel: No Contact w/Someone Who Travel: No Recent Infectious Disease Expo: No Recent Hopitalizations: No Physical Abuse: No Sexual Abuse: No Mistreated: No Fear: No Seasonal Allergies Seasonal Allergies: No Past Medical History Surgeries: Yes Appendectomy, Gallbladder, Tonsillectomy, Tubal Ligation Respiratory: No Cardiac: No Neurological: 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 oz. 72.277221mz; 28.00 BMI Method:Stated General Appearance: WD/WN, mild distress Cardiovascular: normal peripheral pulses, regular rate, rhythm Respiratory: chest non-tender, lungs clear, normal breath sounds Gastrointestinal: normal bowel sounds, soft, tenderness (mild suprapubic pain) Back: normal inspection, no CVA tenderness Skin: normal color, warm/dry Progress/Results/Core Measures Suspected Sepsis Recent Fever Within 48 Hours: No Infection Criteria Present: None New/Unexplained Altered Menta: No Sepsis Screen: No Definite Risk SIRS Temperature: Pulse: 82 Respiratory Rate: 18 Blood Pressure 94 /50 Mean: 65 Results/Orders Lab Results Laboratory Tests Test 01/07/20 16:45 Range/Units Urine Color YELLOW Urine Clarity CLOUDY Urine pH 6.0 5-9 Urine Specific [place] >1.030 1.016-1.022 Urine Protein 2+ H NEGATIVE Urine Glucose (UA) NEGATIVE NEGATIVE Urine Ketones NEGATIVE NEGATIVE Urine Nitrite NEGATIVE NEGATIVE Urine Bilirubin NEGATIVE NEGATIVE Urine Urobilinogen 0.2 < = 1.0 MG/DL Urine Leukocyte Esterase 1+ H NEGATIVE Urine RBC (Auto) 3+ H NEGATIVE Urine RBC >100 H /HPF Urine WBC 25-50 H /HPF Urine Squamous Epithelial Cells 10-25 H /HPF Urine Crystals NONE /LPF Urine Bacteria MODERATE H /HPF Urine Casts NONE /LPF Urine Mucus NEGATIVE /LPF Urine Culture Indicated YES My Orders Orders - MICK MONTES MD Urinalysis (01/07/20 16:41) Urine Culture (01/07/20 16:45) Vital Signs/I&O 01/07/20 01/07/20 16:53 17:26 Temp 36.5 36.2 Pulse 82 82 Resp 18 16 B/P (MAP) 94/50 (65) 94/50 Pulse Ox 99 99 O2 Delivery Room Air Room Air Capillary Refill : Less Than 3 Seconds Blood Pressure Mean: 65 Progress Note : Progress Note Urinalysis shows signs of infection with hematuria. Will treat with cephalexin since she has had improvement with that in the past. Encourage patient to drink more fluids. We will also treat with Pyridium to help with symptoms until the antibiotic has a chance to kick in. Departure Impression Primary Impression: Cystitis with hematuria Disposition: HOME, SELF-CARE Condition: Stable Departure-Patient Inst. Decision time for Depature: 17:17 Referrals: MAITE AGUERO MD (PCP/Family) Primary Care Physician Patient Instructions: Urinary Tract Infection, Adult (DC) Add. Discharge Instructions: Drink plenty of water and cranberry juice to help with hydration and flushing out the infection. Follow up with primary provider if not improving. Take the full course of antibiotics All discharge instructions reviewed with patient and/or family. Voiced understanding. Scripts Phenazopyridine HCl (Phenazopyridine HCl) 200 Mg Tablet 200 MG PO TID for Dysuria for 2 Days, #6 TAB 0 Refills Prov: MICK MONTES MD 01/07/20 Cephalexin (Cephalexin) 500 Mg Tablet 500 MG PO QID for uti for 10 Days, #40 TAB 0 Refills Prov: MICK MONTES MD 01/07/20 MICK MONTES MD Jan 07, 2020 17:01
[2020-01-07] MEDS ORDERED: PHEN-827 PO (17:19)
[2020-01-07] MEDS ORDERED: CEPH500T PO (17:19)
[2020-01-07 17:26] VITALS: BP 94/50
== END 2020-01-07 17:28 | disposition home or self-care (01) ==
LOC: EDUNIT# 16:22 → ER FS 16:23
DX: N30.91 Cystitis, unspecified with hematuria (principal); F17.210 Nicotine dependence, cigarettes, uncomplicated; Z79.52 Long term (current) use of systemic steroids
CPT/HCPCS: 81000; 87088; 99282

== ENCOUNTER → 2020-09-09 | Outpatient (CLI) | payer MEDICAID ==
[~2020-09-09] MED LIST changes: +CEPH500T PO; -CLIN150C17 PO; +CLIN150C18 PO; +PHEN-827 PO
--- NOTE | 2020-09-09 15:23 | Diagnostic Imaging Report ---
PROCEDURE: Pelvic comp/transvaginal sonogram. TECHNIQUE: Complete transabdominal and transvaginal pelvic ultrasound was performed. In addition, limited pelvic Doppler was performed. INDICATION: Dysfunctional uterine bleeding. The uterus is anteverted measuring 7.4 x 4.4 x 5.7 cm. The endometrium measures approximately 11 mm in thickness. There is some heterogeneity to the endometrium. No myometrial mass is detected. Right ovary measures 4.8 x 1.9 x 2.9 cm and left ovary measures 3.3 x 2.1 x 2.1 cm. There is blood flow to both ovaries. Right ovary contains a partially collapsed cyst measuring approximately 2.1 cm in diameter. Minimal free fluid adjacent to the right ovary is noted. IMPRESSION: 1. Partially collapsed 2.1 cm right ovarian cyst. 2. There is endometrial heterogeneity but no discrete endometrial mass is detected. Dictated by: Dictated on workstation # [id number]
== END ==
LOC: RAD 13:59
PROVIDERS: ATTEND Family Medicine
DX: N83.201 Unspecified ovarian cyst, right side (principal); N85.8 Other specified noninflammatory disorders of uterus
CPT/HCPCS: 76830; 76856

== ENCOUNTER 2020-09-17 16:11 | Emergency (ER) | payer MEDICAID ==
[~2020-09-17] VITALS: Ht 162 cm; Wt 81.0 kg
[2020-09-17 16:16] VITALS: BP 124/53
[2020-09-17] MEDS ORDERED: ONDA4TAB11 PO (16:22)
--- NOTE | 2020-09-17 16:22 | ED GI ---
General Stated Complaint: D/N/V,FEVER,HEADACHE History of Present Illness Date Seen by Provider: September 17, 2020 Time Seen by Provider: 16:17 Initial Comments 40-year-old female presents with diarrhea, nausea and vomiting for the past 2 days. Took Imodium one time without any relief so she did not take anymore. Has been able to eat and drink. Is having some intermittent abdominal cramping without overt or persistent pain. No sick contacts, denies any suspicion of food poisoning. No blood in her stool or in her vomit. Allergies and Home Medications Allergies Coded Allergies: No Known Drug Allergies (Unverified , 11/10/18) Home Medications Albuterol Sulfate 1 Puff Puff, 2 PUFF IH Q4H 1 PUFF = 90 MCG Prescribed by: SONIA BACON on 12/04/181940 Azithromycin 250 Mg Tablet, 250 MG PO DAILY Prescribed by: SONIA BACON on 12/04/181940 Cephalexin 500 Mg Tablet, 500 MG PO QID Prescribed by: MICK MONTES on 01/07/201718 Clindamycin HCl 150 Mg Capsule, 300 MG PO Q6H Prescribed by: EVELYN STEVENS on 11/10/181844 Diclofenac Sodium 75 Mg Tablet.dr, 75 MG PO BID Prescribed by: JAXSON DUBON on 11/04/19 1246 Famotidine 20 Mg Tablet, 20 MG PO BID Prescribed by: EVELYN STEVENS on 11/10/18 184 Ondansetron 4 Mg Tab.rapdis, 4 MG PO Q6H PRN for NAUSEA/VOMITING Prescribed by: EVELYN STEVENS on 11/10/18 184 Ondansetron 4 Mg Tab.rapdis, 4 MG PO TID Prescribed by: ROCÍO PARSONS on 09/17/20 162 Phenazopyridine HCl 200 Mg Tablet, 200 MG PO TID Prescribed by: MICK MONTES on 01/07/201718 Prednisone 20 Mg Tab, 40 MG PO DAILY Prescribed by: SONIA BACON on 12/04/181940 Patient Home Medication List Home Medication List Reviewed: Yes Review of Systems Review of Systems Constitutional: No fever; malaise Respiratory: Denies Cough, Denies Shortness of Air Cardiovascular: Denies Chest Pain, Denies Edema, Denies Lightheadedness Gastrointestinal: See HPI, Abdominal Pain; Denies Blood Streaked Stools, Denies Constipated; Diarrhea, Nausea, Vomiting Musculoskeletal: No back pain, No joint pain Skin: No change in color, No rash Past Jvyzmqo-Vfwpnp-Ksacwx Hx Past Med/Social Hx: Reviewed Nursing Past Med/Soc Hx Patient Social History Type Used: Cigarettes 2nd Hand Smoke Exposure: No Recent Hopitalizations: No Seasonal Allergies Seasonal Allergies: No Past Medical History Surgeries: Yes Appendectomy, Gallbladder, Tonsillectomy, Tubal Ligation Respiratory: No Cardiac: No Neurological: No 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 oz. 72.087280mj; 28.00 BMI Method:Stated General Appearance: WD/WN, no apparent distress Respiratory: chest non-tender, lungs clear Cardiovascular: regular rate, rhythm, no edema, no JVD Gastrointestinal: normal bowel sounds, non tender, soft, no organomegaly, no pulsatile mass Back: normal inspection, no CVA tenderness Neurologic/Psychiatric: alert, normal mood/affect, oriented x 3 Skin: normal color, warm/dry Progress/Results/Core Measures Results/Orders Vital Signs/I&O 09/17/20 16:16 Temp 36.5 Pulse 86 Resp 18 B/P (MAP) 124/53 (76) Pulse Ox 100 O2 Delivery Room Air Departure Impression Primary Impression: Gastroenteritis Disposition: 01 HOME, SELF-CARE Condition: Stable Departure-Patient Inst. Decision time for Depature: 16:22 Referrals: MAITE AGUERO MD (PCP/Family) Primary Care Physician Patient Instructions: Diarrhea, Adult ED Add. Discharge Instructions: Zehra Aguero in 1 week if not improving, ER sooner if worse and unable to see Dr Aguero Scripts Ondansetron (Ondansetron Odt) 4 Mg Tab.rapdis 4 MG PO TID for Nausea, #10 TAB Prov: ROCÍO PARSONS DO 09/17/20 Work/School Note: Work Release Form Date Seen in the Emergency Department: September 17, 2020 Return to Work: September 19, 2020 Restrictions: No Restrictions ROCÍO PARSONS DO September 17, 2020 16:22
== END 2020-09-17 16:25 | disposition home or self-care (01) ==
LOC: EDUNIT# 16:11 → ER FS 16:12
DX: K52.9 Noninfective gastroenteritis and colitis, unspecified (principal); Z98.51 Tubal ligation status
CPT/HCPCS: 99282

== ENCOUNTER 2020-11-29 06:16 | Outpatient (CLI) | payer MEDICAID ==
[~2020-11-29] VITALS: Ht 160 cm; Wt 80.5 kg
[2020-11-30] MEDS ORDERED: CITA40TA11 PO (12:39)
== END 2020-11-30 12:48 | disposition home or self-care (01) ==
LOC: PREOP 06:16
PROVIDERS: ATTEND Obstetrics & Gynecology
DX: Z01.818 Encounter for other preprocedural examination (principal)

== ENCOUNTER 2020-12-06 09:32 | Day surgery (SDC) | payer MEDICAID ==
[2020-12-06] VITALS (11 sets, daily range): BP systolic 107–140; BP diastolic 43–84
[~2020-12-06] VITALS: Ht 160 cm; Wt 80.5 kg
[~2020-12-06 09:32] MED LIST changes: +CITA40TA11 PO
[2020-12-06] MEDS ORDERED: LACTATED RINGERS 1,000 ML IV PRN (09:45)
[2020-12-06] MEDS ORDERED: metroNIDAZOLE 500MG/100ML IVPB 100 ML IV ONE (09:45)
[2020-12-06] MEDS ORDERED: ceFAZolin 2 GM IV Premixed 50 ML IV ONE (09:45)
[2020-12-06] MEDS ORDERED: ceFAZolin 2 GM IV Premixed 0 ML ONE (09:53)
--- NOTE | 2020-12-06 10:11 | Progress Note-Pre Operative ---
Pre-Operative Progress Note H&P Reviewed The H&P was reviewed, patient examined and no changes noted. Date Seen by Provider: Dec 06, 2020 Time Seen by Provider: 10:11 Date H&P Reviewed: Dec 06, 2020 Time H&P Reviewed: 10:00 Pre-Operative Diagnosis: Dysmenorrhea, Menorrhagia KATIE TURNER DO Dec 06, 2020 10:11 am
[2020-12-06] MEDS ORDERED: SMT80CT PO (10:14)
[2020-12-06] MEDS ORDERED: HYDR-34 PO (10:14)
[2020-12-06] MEDS ORDERED: IBUP-844 PO (10:14)
[2020-12-06] MEDS ORDERED: DCS100C PO (10:14)
--- NOTE | 2020-12-06 10:14 | Discharge Inst-Women's Service ---
Discharge Inst-Women's Serv Depart Medication/Instructions New, Converted or Re-Newed RX: RX on Chart Problems Reviewed?: Yes Consults/Follow Up Additional Follow Up: Yes Orders/Referrals Dr. Cruz or flower in 7-10 days and in 8 weeks Activity Activity: Activity as Tolerated Driving Instructions: No Driving for 1 Week NO SMOKING: NO SMOKING Nothing Inside Vagina: No Douching, No [place], No Tampons Diet Discharge Diet: No Restrictions Symptoms to Report to : Bleeding Excessive, Pain Increased, Fever Over 101 Degrees F, Vaginal Bleeding Increase, Questions/Concerns For Any Problems or Questions: Contact Your Physician Skin/Wound Care Infection Signs and Symptoms: Increased Redness, Foul Odor of Wound, Increased Drainage, Skin Itchy or Has a Rash, Increased Swelling, Temperature Above 101 F Operative Area Clean and Dry: Keep Incision Clean/Dry Stitches/[place]/Dermabond: Dermabond, Care of Stitches Bathing Instructions: KATIE Robbins DO Dec 06, 2020 10:13 am
[2020-12-06] MEDS ORDERED: ZOLPIDEM 5 MG (AMBIEN) TAB PO PRN (10:15)
[2020-12-06] MEDS ORDERED: NALOXONE 0.4 MG/ML 1 ML (NARCAN) VIAL IV PRN (10:15)
[2020-12-06] MEDS ORDERED: ANTACID SUSP 30 ML UDC (MYLANTA) PO PRN (10:15)
[2020-12-06] MEDS ORDERED: ONDANSETRON 4 MG/2 ML (SDV) Z0FRAN IV PRN (10:15)
[2020-12-06] MEDS ORDERED: DOCUSATE SODIUM 100 MG (COLACE) CAP PO PRN (10:15)
[2020-12-06] MEDS ORDERED: CHLORASEPTIC LOZENGE MM PRN (10:15)
[2020-12-06] MEDS ORDERED: IBUPROFEN 600 MG (MOTRIN) TAB PO PRN (10:15)
[2020-12-06] MEDS ORDERED: SIMETHICONE 80 MG (MYLICON) CHEW PO PRN (10:15)
[2020-12-06] MEDS ORDERED: HYDROcodone/APAP 7.5 MG/325 MG (LORTAB, LORCET PLUS) TABLET PO PRN (10:15)
[2020-12-06] MEDS ORDERED: BUPIVACAINE 0.25% 30 ML (SENSORCAINE) VIAL ONE (10:41)
[2020-12-06] MEDS ORDERED: LIDOCAINE PF 2% 5 ML (XYLOCAINE) VIAL ONE (10:42)
[2020-12-06] MEDS ORDERED: MIDAZOLAM 2 MG/2 ML (VERSED) VIAL ONE (10:42)
[2020-12-06] MEDS ORDERED: ONDANSETRON 4 MG/2 ML (SDV) Z0FRAN ONE (10:42)
[2020-12-06] MEDS ORDERED: proPOfol 200 MG/20 ML (DIPRIVAN) VIAL IV ONE (10:42)
[2020-12-06] MEDS ORDERED: fentaNYL INJ 100 MCG/2 ML AMP ONE (10:42)
[2020-12-06] MEDS ORDERED: ROCURONIUM 10 MG/ML 5 ML SYRINGE IV ONE (10:42)
[2020-12-06 10:47] LABS: BASOPHILS # (AUTO) 0.1 10^3/uL (0.0-0.1); BASOPHILS % (AUTO) 2 % (0-10); EOSINOPHILS # (AUTO) 0.2 10^3/uL (0.0-0.3); EOSINOPHILS % (AUTO) 3 % (0-10); HEMATOCRIT 34 % (35-52); HEMOGLOBIN 10.3 g/dL (11.5-16.0); LYMPHOCYTES # (AUTO) 2.3 10^3/uL (1.0-4.0); LYMPHOCYTES % (AUTO) 31 % (12-44); MEAN CORPUSCULAR HEMOGLOBIN 22 pg (25-34); MEAN CORPUSCULAR HGB CONC 30 g/dL (32-36); MEAN CORPUSCULAR VOLUME 74 fL (80-99); MEAN PLATELET VOLUME 9.9 fL (9.0-12.2); MONOCYTES # (AUTO) 0.6 10^3/uL (0.0-1.0); MONOCYTES % (AUTO) 8 % (0-12); NEUTROPHILS # (AUTO) 4.2 10^3/uL (1.8-7.8); NEUTROPHILS % (AUTO) 57 % (42-75); PLATELET COUNT 417 10^3/uL (130-400); WHITE BLOOD COUNT 7.4 10^3/uL (4.3-11.0)
[2020-12-06] MEDS: LACTATED RINGERS 1,000 ML IV SCH ×2 (11:44→14:11)
[2020-12-06] MEDS ORDERED: HYDROmorphone 2 MG/ML VIAL (DILAUDID) ONE (11:56)
[2020-12-06] MEDS ORDERED: GLYCOPYRROLATE 0.2 MG/ML (ROBINUL) 2 ML VIAL ONE (12:23)
[2020-12-06] MEDS ORDERED: NEOSTIGMINE 3 MG/3 ML VIAL ONE (12:23)
[2020-12-06] MEDS ORDERED: KETOROLAC 30 MG/ML VIAL ONE (13:01)
[2020-12-06] MEDS: KETOROLAC 30 MG/ML VIAL IVP PRN ×2 (13:03→18:58)
--- OUTSIDE RECORDS SUMMARY | 2020-12-06 13:10 | XMS REPORT | Clinical Summary ---
Author Author [facility] Organization [facility] Address Unknown Phone Unavailable Care Team Providers Care Fingernail Technician Name Role Phone Elsy Lopez MD PCP Source Comments Some departments are not documenting in the electronic medical record. If you d o not see the information that you expected, contact Release of Information in [facility] [employer] Information Management department at [phone] for further assistan ce in locating additional records.[facility] Allergies No Known Active Allergies Medications End Date Status Medication Sig Dispensed Refills Start Date Active HYDROcodone/acetaminophen Take 1 Tab by 0 (NORCO) 5/325 mg tablet mouth every 4 hours as needed for Pain Active citalopram (CELEXA) 20 mg Take 20 mg by 0 tablet mouth daily. Active gabapentin (NEURONTIN) 1 po qhs x 1 90 capsule 3 300 mg week then 1 8 capsuleIndications: po bid x 1 neuropathic pain week then 1 po tid thereafter Active ibuprofen (MOTRIN) 800 mg Take one 90 tablet 2 tablet tablet by 8 mouth daily as needed for Pain. Take with food. 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 2016 Surgical History Surgery Date Site/Laterality Comments APPENDECTOMY TONSIL AND ADENOIDECTOMY TUBAL LIGATION GALLBLADDER SURGERY Medical History Medical History Date Comments WALKER (headache) Depression Anxiety disorder Family History Medical History Relation Name Comments Depression Father Hypertension Father Depression Mother Relation Name Status Comments Father Alive Mother Alive Sister Alive Social History Date Tobacco Use Types Packs/Day Years Used Current Every Day Smoker Comments Alcohol Use Standard Drinks/Week Not Asked 0 (1 standard drink = 0.6 o z pure alcohol) Sex Assigned at Date Recorded Not on file Last Filed Vital Signs Reading Time Taken Comments Vital Sign 106/50 12/26/2017 4:31 PM CDT Blood Pressure 75 12/26/2017 2:38 PM CDT Pulse 37 C (98.6 F) 12/26/2017 2:38 PM CDT Temperature 15 12/26/2017 2:38 PM CDT Respiratory Rate 98% 12/26/2017 4:31 PM CDT Oxygen Saturation - - Inhaled Oxygen Concentration 77.1 kg (170 lb) 12/26/2017 2:38 PM CDT Weight 160 cm (5' 3") 12/26/2017 2:38 PM CDT Height 30.11 12/26/2017 2:38 PM CDT Body Mass Index Plan of Treatment Health Maintenance Due Date Last Done Comments HIV SCREENING 1997 DTAP/TDAP VACCINES (1 - 02/25/2000 Tdap) HEPATITIS C SCREENING 02/25/2000 PHYSICAL (COMPREHENSIVE) 02/25/2000 EXAM CERVICAL CANCER SCREENING 2003 INFLUENZA VACCINE 01/21/2021 Results Not on filefrom Last 3 Months Insurance Type Payer Benefit Subscriber ID Effective Phone Address Plan / Dates Group Medicaid [facility] MEDICAID [facility] [id number] 2017[place] [phone] Advance Directives 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
--- NOTE | 2020-12-06 13:16 | Anesthesia-General Post-Op ---
General Patient Condition Mental Status/LOC: Same as Preop Cardiovascular: Satisfactory Nausea/Vomiting: Absent Respiratory: Satisfactory Pain: Controlled Complications: Absent Post Op Complications Complications None Follow Up Care/Instructions Patient Instructions None needed. Anesthesia/Patient Condition Patient Condition Patient is doing well, no complaints, stable vital signs, no apparent adverse anesthesia problems. No complications reported per nursing. FILIPE TERRY CRNA Dec 06, 2020 13:16
--- NOTE | 2020-12-07 00:06 | OPERATIVE REPORT ---
DATE OF SERVICE: PREOPERATIVE DIAGNOSES: 1. A 40-year-old female with dysmenorrhea. 2. Chronic pelvic pain. 3. Abnormal uterine bleeding. POSTOPERATIVE DIAGNOSES: 1. A 40-year-old female with dysmenorrhea. 2. Chronic pelvic pain. 3. Abnormal uterine bleeding. 4. Filmy adhesions of the pelvic peritoneum and omentum to the anterior abdominal wall. PROCEDURE PERFORMED: Robotic-assisted total laparoscopic hysterectomy with bilateral salpingectomy and lysis of adhesions. SURGEON: Pee Cruz DO. SPORTS EQUIPMENT SUPERVISOR: Magalys John DNP, was necessary for manipulation and retraction throughout the procedure. ANESTHESIA: General endotracheal. ESTIMATED BLOOD LOSS: Minimal. URINE OUTPUT: 300 mL clear at the end of the procedure. FLUIDS: 1700 mL of lactated Ringer's solution. FINDINGS: Grossly normal-appearing uterus with filmy adhesions of the posterior cul-de-sac to the uterosacral ligaments and the posterior aspect of the uterus. There are also filmy adhesions of the ovary into the ovarian fossa, also adhesions of the omentum to the anterior abdominal wall, creating a curtain-like adhesion present within the abdomen. Grossly normal-appearing external female genitalia, grossly normal-appearing upper abdominal anatomy. SPECIMEN SENT: Uterus, bilateral fallopian tubes, and ovaries. INDICATIONS FOR PROCEDURE: This 40-year-old female is a patient who is consulted to my office for chronic pelvic pain, dysmenorrhea, and abnormal uterine bleeding. She had tried more conservative measures in the past and was completed with childbearing as she had a tubal ligation in the past. She just wished to proceed with hysterectomy as other measures have been demonstrated not helped her in the past and she had contraindications to some of those as well. We discussed proceeding with robotic-assisted hysterectomy. Risks of procedure were discussed with the patient in detail including risk of bleeding, infection, damage to surrounding structures including, but not limited to bowel, bladder, ureters, kidneys, possible need for reoperation, postoperative complications that may occur, risk from anesthesia, and even . After everything was discussed with the patient in detail, consent was obtained in the preoperative area and the patient was taken to the operating room. OPERATIVE REPORT IN DETAIL: Once in the operating room, general anesthesia was found to be adequate. She was placed in dorsal lithotomy position, prepped and draped in normal sterile fashion. A timeout was performed. Chamorro catheter was placed using sterile technique. Weighted speculum was inserted to the patient's vagina. Right angle retractor was used to visualize the cervix, which was grasped at 12 o'clock position using a long Allis clamp. I then placed a [employer] uterine manipulator to a depth of 8 cm and a 3.5 cm colpotomy ring was advanced around the vaginal fornix. I then removed all the instruments from the patient's vagina. I performed a change of gloves and took my attention to the abdomen, where about one fingerbreadth subcostally at the midclavicular line on the left, I placed a Veress needle through the skin until intraperitoneal placement was confirmed using saline drop test. An opening pressure of 2 mmHg was noted, proceeded to maximum pressure of 15 mmHg using CO2 gas, at which point I made an incision that was infraumbilically approximately 8 mm and placed a da Leif camera trocar through this incision. I was able to confirm intraperitoneal placement using the da Leif laparoscope. A brief scan of the anatomy appears to be grossly normal with no evidence of damage upon my entry site. Looking into the left upper quadrant, there was no evidence of damage upon my Veress site and the Veress was removed without difficulty at that point. As I placed the patient in steep Trendelenburg, I am able to visualize the filmy and blanket adhesions of the omentum to the anterior abdominal wall. I found windows in the adhesions to place my 2 lateral trocars, used both 8 mm trocars that were placed approximately 8 cm lateral to my infraumbilical trocar. Once both of these trocars were in place, I brought in the da Leif robot and docked in appropriate fashion, placing the SynchroSeal device in the left hand and monopolar joce in the right hand. I first took down the filmy adhesions to the right lateral aspect allowing for dissection into the pelvis, at which point I have a clear dissection plane. I performed the following dissection bilaterally. Starting at the utero-ovarian ligament, I sealed and transected this using the SynchroSeal device. I then created a window in the mesosalpinx and took this laterally down the mesosalpinx, amputating the fallopian tube from its surrounding blood supply connection point. I then grasped the round ligament, which I sealed and transected using the SynchroSeal device. I then grasped the broad ligament, which I sealed and transected using the SynchroSeal device. I did this down to the level of the lower uterine segment, at which point I the anterior and posterior leaflets of the broad ligament. The anterior leaflet dissection was taken around the anterior vaginal fornix and posterior leaflets was taken around the posterior vaginal fornix. This allowed me to skeletonize the uterine vessels laterally, which I sealed and transected using the SynchroSeal device. I then created a colpotomy at 12 o'clock position using monopolar joce and took this circumferentially around the vaginal fornix, amputating the cervix away from its surrounding connection point to the vagina. The cervix, uterus, and bilateral fallopian tubes were removed through the vagina at that point. I then closed the lateral vaginal apices of the vaginal cuff using 2-0 Vicryl suture in a [id number] fashion, colposuspending into the uterosacral ligament. I then closed the remainder of the vaginal cuff using 2-0 V-Loc in a running fashion, after which there was no active bleeding noted from any of my dissection planes, at which point I undocked the da Leif robot. I then proceeded with remainder of the case laparoscopically. I copiously irrigated the pelvis using normal saline. Once again, there was no active bleeding noted from any of my dissection planes. I placed FloSeal hemostatic agent over all my planes of dissection to ensure excellent postoperative hemostasis. I then had the patient taken out of steep Trendelenburg where I am able to visualize the lateral trocars, which I removed under direct visualization of the laparoscope. The infraumbilical trocar was left in place to release insufflation and introduced 10 mL of 0.25% Marcaine into the peritoneal cavity for postoperative pain management. I then removed this trocar as well. The skin was then reapproximated using 4-0 Monocryl interrupted subcuticular stitches. Dermabond was applied to all 3 incisions and Band-Aids were placed over the incisions as well. Chamorro catheter was left in place. Lap and sponge counts were correct at the end of the procedure. Instrument counts correct as well. Two grams of Ancef and 500 mg of Flagyl were given preoperatively for infection prophylaxis. The patient tolerated the procedure well and sent to recovery in stable condition. Job ID: [id number] DocumentID: [id number] Dictated Date: 12/06/2020 13:47:50 Tightening Machine Operator Date: 12/07/2020 00:05:12 Dictated By: DO CHELE TARANGO
== END 2020-12-06 19:40 | disposition home or self-care (01) ==
LOC: SDC 09:32 → WS 13:44 → SDC 19:40
PROVIDERS: ATTEND Obstetrics & Gynecology
DX: D25.2 Subserosal leiomyoma of uterus (principal); N72 Inflammatory disease of cervix uteri; N83.8 Other noninflammatory disorders of ovary, fallopian tube and broad ligament; N73.6 Female pelvic peritoneal adhesions (postinfective); F17.210 Nicotine dependence, cigarettes, uncomplicated; F32.9 Major depressive disorder, single episode, unspecified; Z98.51 Tubal ligation status; F41.9 Anxiety disorder, unspecified; D50.0 Iron deficiency anemia secondary to blood loss (chronic); Z79.899 Other long term (current) drug therapy; Z79.1 Long term (current) use of non-steroidal anti-inflammatories (NSAID)
CPT/HCPCS: 36415; 84703; 85025; 86850; 86900; 86901; 87081; 88307

== ENCOUNTER 2021-04-05 18:12 | Emergency (ER) | payer MEDICAID ==
[~2021-04-05] VITALS: Ht 160 cm; Wt 79.0 kg
[~2021-04-05 18:12] MED LIST changes: -CITA40TA11 PO; +CITA40TA13 PO; -CLIN150C18 PO; +CLIN150C20 PO; +DOCU-239 PO; +HYDR-34 PO; +IBUP-844 PO; +SMT80CT PO
--- NOTE | 2021-04-05 18:18 | ED Abdominal Pain ---
General Stated Complaint: LOWER ABD/BACKPAIN,NAUSEA,LIGHTHEADED History of Present Illness Date Seen by Provider: Apr 05, 2021 Time Seen by Provider: 18:30 Initial Comments 41-year-old female presents with some left-sided flank pain, nausea suprapubic pain and lightheadedness and significant dysuria. Reports that yesterday she has some flank pain mild dysuria but today is significantly worse which she gets pain that comes and goes difficulty getting comfortable. She complains of significant discomfort when she urinates. She reports that the pain makes her nauseated and a little lightheaded with some hot flashes. Patient thinks she is has a kidney stone because a "run in her family" but she has never had 1. Allergies and Home Medications Allergies Coded Allergies: No Known Drug Allergies (Unverified , 11/30/20) Patient Home Medication List Home Medication List Reviewed: Yes Citalopram Hydrobromide (Citalopram HBr) 40 Mg Tablet, 40 MG PO DAILY, (Reported) Entered as Reported by: MAITE ELIZONDO on 11/30/20 1239 Docusate Sodium (Dok) 100 Mg Capsule, 100 MG PO BID PRN for CONSTIPATION-1ST LINE Prescribed by: KATIE TURNER on 12/06/20 1014 Hydrocodone Bit/Acetaminophen (HYDROcodone/APAP 7.5/325 TAB) 1 Ea Tablet, 1-2 EA PO Q6HR PRN for PAIN-MODERATE (5-7) Prescribed by: KATIE TURNER on 12/06/20 1015 Ibuprofen (Ibu) 600 Mg Tablet, 600 MG PO Q6HR PRN for PAIN-MILD (1-4) Prescribed by: KATIE TURNER on 12/06/20 1014 Simethicone (Mi-Acid) 80 Mg Tab.chew, 40 MG PO TID PRN for INDIGESTION 2ND LINE Prescribed by: KATIE TURNER on 12/06/20 1014 Review of Systems Review of Systems Constitutional: see HPI, chills, dizziness; No fever EENTM: No Symptoms Reported Respiratory: No Symptoms Reported Cardiovascular: No Symptoms Reported Gastrointestinal: See HPI, Abdominal Pain (Suprapubic), Nausea; Denies Vomiting Genitourinary: See HPI, Flank Pain, Pain Musculoskeletal: no symptoms reported Skin: no symptoms reported Psychiatric/Neurological: No Symptoms Reported Endocrine: No Symptoms Reported Past Hvpwqgd-Tgirdb-Csrcie Hx Seasonal Allergies Seasonal Allergies: Yes Past Medical History Surgeries: Yes (DENTAL) Appendectomy, Gallbladder, Tonsillectomy, Tubal Ligation Respiratory: No Cardiac: No Neurological: No Female Reproductive Disorders: Menstrual Problems [employer] History: Tubal Ligation Genitourinary: No Gastrointestinal: No Musculoskeletal: No Endocrine: No HEENT: No Cancer: No Psychosocial: Yes Anxiety, Depression Integumentary: No Blood Disorders: No Physical Exam Vital Signs Vital Signs - First Documented 04/05/21 18:35 Temp 36.1 Pulse 97 Resp 14 B/P (MAP) 151/60 (90) Pulse Ox 97 O2 Delivery Room Air Capillary Refill : Height/Weight/BMI Height: 5'3.00" Weight: 160lbs. oz. 72.058848pc; 31.44 BMI Method:Stated General Appearance: mild distress HEENT: PERRL/EOMI Neck: full range of motion Respiratory: lungs clear, normal breath sounds Cardiovascular: normal peripheral pulses, regular rate, rhythm Gastrointestinal: soft, tenderness (Mild tenderness suprapubic) Extremities: normal range of motion Back: No CVA tenderness (R); CVA tenderness (L) Neurologic/Psychiatric: alert, normal mood/affect, oriented x 3 Skin: normal color, warm/dry Progress/Results/Core Measures Results/Orders Lab Results Laboratory Tests Test 04/05/21 18:45 04/05/21 18:55 Range/Units White Blood Count 6.6 4.3-11.0 10^3/uL Red Blood Count 4.71 3.80-5.11 10^6/uL Hemoglobin 10.6 L 11.5-16.0 g/dL Hematocrit 36 35-52 % Mean Corpuscular Volume 77 L 80-99 fL Mean Corpuscular Hemoglobin 23 L 25-34 pg Mean Corpuscular Hemoglobin Concent 29 L 32-36 g/dL Red Cell Distribution Width 16.9 H 10.0-14.5 % Platelet Count 394 130-400 10^3/uL Mean Platelet Volume 8.9 L 9.0-12.2 fL Immature Granulocyte % (Auto) 0 % Neutrophils (%) (Auto) 54 42-75 % Lymphocytes (%) (Auto) 38 12-44 % Monocytes (%) (Auto) 5 0-12 % Eosinophils (%) (Auto) 2 0-10 % Basophils (%) (Auto) 1 0-10 % Neutrophils # (Auto) 3.6 1.8-7.8 X 10^3 Lymphocytes # (Auto) 2.5 1.0-4.0 X 10^3 Monocytes # (Auto) 0.4 0.0-1.0 X 10^3 Eosinophils # (Auto) 0.1 0.0-0.3 10^3/uL Basophils # (Auto) 0.1 0.0-0.1 10^3/uL Immature Granulocyte # (Auto) 0.0 0.0-0.1 10^3/uL Sodium Level 136 135-145 MMOL/L Potassium Level 3.7 3.6-5.0 MMOL/L Chloride Level 100 98-107 MMOL/L Carbon Dioxide Level 24 21-32 MMOL/L Anion Gap 12 5-14 MMOL/L Blood Urea Nitrogen 4 L 7-18 MG/DL Creatinine 0.64 0.60-1.30 MG/DL Estimat Glomerular Filtration Rate 103 BUN/Creatinine Ratio 6 Glucose Level 121 H 70-105 MG/DL Calcium Level 9.2 8.5-10.1 MG/DL Corrected Calcium 8.8 8.5-10.1 MG/DL Total Bilirubin 0.2 0.1-1.0 MG/DL Aspartate Amino Transf (AST/SGOT) 22 5-34 U/L Alanine Aminotransferase (ALT/SGPT) 24 0-55 U/L Alkaline Phosphatase 86 40-136 U/L Total Protein 7.6 6.4-8.2 GM/DL Albumin 4.5 3.2-4.5 GM/DL Urine Color YELLOW Urine Clarity SL CLOUDY Urine pH 7.0 5-9 Urine Specific [place] 1.020 1.016-1.022 Urine Protein NEGATIVE NEGATIVE Urine Glucose (UA) NEGATIVE NEGATIVE Urine Ketones NEGATIVE NEGATIVE Urine Nitrite NEGATIVE NEGATIVE Urine Bilirubin NEGATIVE NEGATIVE Urine Urobilinogen 0.2 < = 1.0 MG/DL Urine Leukocyte Esterase NEGATIVE NEGATIVE Urine RBC (Auto) 2+ H NEGATIVE Urine RBC RARE /HPF Urine WBC 5-10 H /HPF Urine Squamous Epithelial Cells 5-10 /HPF Urine Crystals NONE /LPF Urine Bacteria FEW H /HPF Urine Casts NONE /LPF Urine Mucus SMALL H /LPF Urine Culture Indicated YES My Orders Orders - RAYSA DELACRUZ DO Cbc With Automated Diff (04/05/21 18:36) Comprehensive Metabolic Panel (04/05/21 18:36) Ua Culture If Indicated (04/05/21 18:36) Metoclopramide Injection (Reglan Injecti (04/05/21 18:36) Ns Iv 1000 Ml (Sodium Chloride 0.9%) (04/05/21 18:36) Ketorolac Injection (Toradol Injection) (04/05/21 18:36) Ct Abdomen/Pelvis Wo (04/05/21 18:36) Urine Culture (04/05/21 18:55) Vital Signs/I&O 04/05/21 18:35 Temp 36.1 Pulse 97 Resp 14 B/P (MAP) 151/60 (90) Pulse Ox 97 O2 Delivery Room Air Progress Progress Note : Progress Note Patient negative for a kidney stone on CT. Patient symptoms most likely as result of acute cystitis. I will prescribe her Macrobid. Patient will be discharged home in stable condition Diagnostic Imaging Diagonstic Imaging: CT Plain Films/CT/US/NM/MRI: abdomen Comments Date of Exam:04/05/21 CT ABDOMEN/PELVIS WO PROCEDURE: CT abdomen and pelvis without contrast. TECHNIQUE: Multiple contiguous axial images were obtained through the abdomen and pelvis without the use of intravenous contrast. Auto Exposure Controls were utilized during the CT exam to meet ALARA standards for radiation dose reduction. INDICATION: Lower abdominal and pelvic pain as well as left flank pain. No prior studies are available for comparison. The lung bases are clear. Liver is unremarkable. Gallbladder is surgically absent. There is no biliary ductal dilatation. Pancreas is unremarkable. There is nonspecific low density lesion in the a posterior spleen measuring 16 mm. No adrenal mass is identified. No renal calculi or hydronephrosis is identified. Aorta is nonaneurysmal. Small and large bowel loops appear to be normal caliber. No obstruction is seen. There appears to be postoperative changes of an appendectomy. Left ovary appears to contain a cyst measuring approximately 2.4 cm. There is a small right ovarian cyst. The uterus appears to be surgically absent. Bladder is decompressed. No inflammatory changes are seen. IMPRESSION: 1. Status post cholecystectomy and appendectomy. 2. Nonspecific low-density lesion within the spleen. 3. No evidence of urinary tract calculi or obstruction. 4. Status post hysterectomy. There is a 2.4 cm left ovarian cyst. Reviewed: Reviewed by Me, Reviewed/Discussed Departure Impression Primary Impression: Acute cystitis Qualified Codes: N30.01 - Acute cystitis with hematuria Disposition: HOME, SELF-CARE Condition: Stable Departure-Patient Inst. Referrals: MAITE AGUERO MD (PCP/Family) Primary Care Physician Patient Instructions: Acute Cystitis (DC) Add. Discharge Instructions: Drink plenty of fluids You may use upvw-efw-bjvtxdy Azo/Pyridium for the burning and discomfort Follow-up with your primary care provider in approximately 7 days for recheck of your urine sooner if symptoms or not improving or continue to worsen Scripts Nitrofurantoin Macrocrystal (Nitrofurantoin) 100 Mg Capsule 100 MG PO BID, #14 CAP 0 Refills Prov: RAYSA DELACRUZ DO 04/05/21 RAYSA DELACRUZ DO Apr 05, 2021 18:18
[2021-04-05] MEDS ORDERED: NS IV 1000 ML 1,000 ML IV STA (18:36)
[2021-04-05] MEDS ORDERED: METOCLOPRAMIDE INJ 10 MG/2 ML (REGLAN) IVP STA (18:36)
[2021-04-05] MEDS ORDERED: KETOROLAC 30 MG/ML VIAL IVP STA (18:36)
[2021-04-05 19:01] LABS: HEMATOCRIT 36 % (35-52); HEMOGLOBIN 10.6 g/dL (11.5-16.0); MEAN CORPUSCULAR HEMOGLOBIN 23 pg (25-34); MEAN CORPUSCULAR HGB CONC 29 g/dL (32-36); MEAN CORPUSCULAR VOLUME 77 fL (80-99); PLATELET COUNT 394 10^3/uL (130-400); WHITE BLOOD COUNT 6.6 10^3/uL (4.3-11.0)
[2021-04-05 19:02] LABS: BASOPHILS # (AUTO) 0.1 10^3/uL (0.0-0.1); BASOPHILS % (AUTO) 1 % (0-10); EOSINOPHILS # (AUTO) 0.1 10^3/uL (0.0-0.3); EOSINOPHILS % (AUTO) 2 % (0-10); LYMPHOCYTES # (AUTO) 2.5 X 10^3 (1.0-4.0); LYMPHOCYTES % (AUTO) 38 % (12-44); MEAN PLATELET VOLUME 8.9 fL (9.0-12.2); MONOCYTES # (AUTO) 0.4 X 10^3 (0.0-1.0); MONOCYTES % (AUTO) 5 % (0-12); NEUTROPHILS # (AUTO) 3.6 X 10^3 (1.8-7.8); NEUTROPHILS % (AUTO) 54 % (42-75)
--- NOTE | 2021-04-05 19:11 | Diagnostic Imaging Report ---
PROCEDURE: CT abdomen and pelvis without contrast. TECHNIQUE: Multiple contiguous axial images were obtained through the abdomen and pelvis without the use of intravenous contrast. Auto Exposure Controls were utilized during the CT exam to meet ALARA standards for radiation dose reduction. INDICATION: Lower abdominal and pelvic pain as well as left flank pain. No prior studies are available for comparison. The lung bases are clear. Liver is unremarkable. Gallbladder is surgically absent. There is no biliary ductal dilatation. Pancreas is unremarkable. There is nonspecific low density lesion in the a posterior spleen measuring 16 mm. No adrenal mass is identified. No renal calculi or hydronephrosis is identified. Aorta is nonaneurysmal. Small and large bowel loops appear to be normal caliber. No obstruction is seen. There appears to be postoperative changes of an appendectomy. Left ovary appears to contain a cyst measuring approximately 2.4 cm. There is a small right ovarian cyst. The uterus appears to be surgically absent. Bladder is decompressed. No inflammatory changes are seen. IMPRESSION: 1. Status post cholecystectomy and appendectomy. 2. Nonspecific low-density lesion within the spleen. 3. No evidence of urinary tract calculi or obstruction. 4. Status post hysterectomy. There is a 2.4 cm left ovarian cyst. Dictated by: Dictated on workstation # [id number]
[2021-04-05 19:12] LABS: BILIRUBIN,URINE NEGATIVE (NEGATIVE); CLARITY,URINE SL CLOUDY; COLOR,URINE YELLOW; GLUCOSE, URINE (UA) NEGATIVE (NEGATIVE); KETONES,URINE NEGATIVE (NEGATIVE); LEUKOCYTE ESTERASE ,URINE NEGATIVE (NEGATIVE); NITRITE,URINE NEGATIVE (NEGATIVE); PROTEIN,URINE NEGATIVE (NEGATIVE)
[2021-04-05 19:15] LABS: BILIRUBIN,TOTAL 0.2 MG/DL (0.1-1.0); CALCIUM 9.2 MG/DL (8.5-10.1); CREATININE SERUM 0.64 MG/DL (0.60-1.30); POTASSIUM 3.7 MMOL/L (3.6-5.0); TOTAL PROTEIN 7.6 GM/DL (6.4-8.2)
[2021-04-05 19:16] LABS: ALBUMIN 4.5 GM/DL (3.2-4.5)
[2021-04-05 19:26] LABS: BACTERIA,URINE FEW /HPF; RBC,URINE RARE /HPF
[2021-04-05] MEDS ORDERED: NITR100C PO (19:38)
[2021-04-05 19:59] VITALS: BP 106/61
== END 2021-04-05 20:00 | disposition home or self-care (01) ==
LOC: EDUNIT# 18:12 → ER FS 18:13
DX: N30.00 Acute cystitis without hematuria (principal); F41.9 Anxiety disorder, unspecified; F32.9 Major depressive disorder, single episode, unspecified; Z79.899 Other long term (current) drug therapy
CPT/HCPCS: 36415; 74176; 80053; 81000; 85025; 87088

== ENCOUNTER → 2021-10-03 | Outpatient (CLI) | payer MEDICAID ==
[~2021-10-03] MED LIST changes: +NITR100C PO
[2021-10-03 11:01] LABS: ALBUMIN 4.2 GM/DL (3.2-4.5); BILIRUBIN,TOTAL 0.3 MG/DL (0.1-1.0); CALCIUM 9.1 MG/DL (8.5-10.1); CREATININE SERUM 0.69 MG/DL (0.60-1.30); POTASSIUM 4.4 MMOL/L (3.6-5.0)
== END ==
LOC: LAB FS 09:47
PROVIDERS: ATTEND Family Medicine
DX: Z00.00 Encounter for general adult medical examination without abnormal findings (principal); F41.1 Generalized anxiety disorder; N95.1 Menopausal and female climacteric states
CPT/HCPCS: 36415; 80053; 80061; 83001; 83002

== ENCOUNTER → 2022-10-10 | Outpatient (CLI) | payer MEDICAID ==
[~2022-10-10] MED LIST changes: +ALBU8.5H6 IH; -RT-ALBUINH IH
--- NOTE | 2022-10-10 16:56 | Diagnostic Imaging Report ---
Indication: Back pain There is degenerative disc space narrowing, endplate sclerosis and osteophytes at the L5-S1 level. Remaining discs are well maintained. No fracture. The alignment normal. Impression: Lumbosacral junction spondylosis. No acute-appearing abnormality. Dictated by: Dictated on workstation # [id number]
== END ==
LOC: RAD FS 11:44
PROVIDERS: ATTEND Family Medicine
DX: M47.817 Spondylosis without myelopathy or radiculopathy, lumbosacral region (principal); N95.1 Menopausal and female climacteric states
CPT/HCPCS: 72100

== ENCOUNTER 2022-10-18 13:56 | Emergency (ER) | payer MEDICAID ==
[~2022-10-18] VITALS: Ht 180 cm; Wt 87.5 kg
[2022-10-18 14:05] VITALS: BP 128/60
[2022-10-18] MEDS ORDERED: IBUP-1773 PO (14:08)
[2022-10-18] MEDS ORDERED: AMOX1TAB12 PO (14:08)
[2022-10-18] MEDS ORDERED: HYDR-3817 PO (14:08)
--- NOTE | 2022-10-18 14:10 | ED EENT ---
History of Present Illness General Chief Complaint: Dental Problems/Pain Stated Complaint: DENTAL PAIN Source: patient History of Present Illness Date Seen by Provider: Oct 18, 2022 Time Seen by Provider: 13:59 Initial Comments 42-year-old female presenting with complaints of dental pain to her left lower front teeth. She has already had all of her upper teeth pulled and has a full denture plate. Her lower teeth have been decaying for years and intermittently giving her pain. She had been trying to wait until insurance kicked in so that she could have the rest of her teeth pulled and get a full lower denture plate. She states over the last 2 weeks she has been having severe pain to the left lower teeth and has been using Orajel as well as ibuprofen with minimal improvement. She denies having fever, chills, nausea, vomiting, headache, dental trauma. She denied any drainage from the teeth. She reports having a dental appointment for October 31 but felt that she needed something more with her pain and concern for infection so she came to the emergency department. Timing/Duration: abrupt (Over 2 weeks ago) Severity: severe Location: dental Prearrival Treatment: over the counter meds Modifying Factors: Worse With Other (Eating and drinking makes the pain worse.) Associated Symptoms: No change in hearing, No cough, No drooling, No ear drainage, No facial pain/swelling, No fever, No malaise, No nasal congestion/drainage, No poor fluid intake, No poor solids intake, No sinus infection, No sore throat; tooth pain; No voice change Allergies and Home Medications Allergies Coded Allergies: No Known Drug Allergies (Unverified , 11/30/20) Patient Home Medication List Home Medication List Reviewed: Yes Amoxicillin/Potassium Clav (Amox Tr-K Clv 875-125 mg Tab) 875 Mg-125 Mg Tablet, 1 EACH PO BID Prescribed by: MICK MONTES on 10/18/22 1408 Citalopram Hydrobromide (Citalopram HBr) 40 Mg Tablet, 40 MG PO DAILY, (Reported) Entered as Reported by: MAITE ELIZONDO on 11/30/20 1239 Docusate Sodium (Dok) 100 Mg Capsule, 100 MG PO BID PRN for CONSTIPATION-1ST LINE Prescribed by: KATIE CRUZ on 12/06/20 1014 Hydrocodone Bit/Acetaminophen (HYDROcodone/APAP 7.5/325 TAB) 1 Ea Tablet, 1-2 EA PO Q6HR PRN for PAIN-MODERATE (5-7) Prescribed by: KATIE CRUZ on 12/06/20 1015 Hydrocodone/Acetaminophen (Hydrocodone-Acetamin 7.5-325) 7.5 Mg-325 Mg Tablet, 1 EACH PO Q4H PRN for PAIN-SEVERE (8-10) Prescribed by: MICK MONTES on 10/18/22 1409 Ibuprofen (Ibu) 600 Mg Tablet, 600 MG PO Q6HR PRN for PAIN-MILD (1-4) Prescribed by: KATIE CRUZ on 12/06/20 1014 Ibuprofen (Ibuprofen) 600 Mg Tablet, 600 MG PO Q6H PRN for PAIN-SEVERE (8-10) Prescribed by: MICK MONTES on 10/18/22 1408 Nitrofurantoin Macrocrystal (Nitrofurantoin) 100 Mg Capsule, 100 MG PO BID Prescribed by: RAYSA DELACRUZ on 04/05/21 1938 Simethicone (Mi-Acid) 80 Mg Tab.chew, 40 MG PO TID PRN for INDIGESTION 2ND LINE Prescribed by: KATIE CRUZ on 12/06/20 1014 Review of Systems Review of Systems Constitutional: No chills, No fever Eyes: No Symptoms Reported Ears: No Symptoms Reported Nose: no symptoms reported Mouth: see HPI Throat: no symptoms reported Respiratory: no symptoms reported Cardiovascular: no symptoms reported Gastrointestinal: no symptoms reported Musculoskeletal: no symptoms reported Past Gfxvuhu-Xrqnrc-Wdfldd Hx Patient Social History Tobacco Use?: Yes Tobacco type used: Cigarettes Seasonal Allergies Seasonal Allergies: Yes Past Medical History Surgeries: Yes (DENTAL) Appendectomy, Gallbladder, Tonsillectomy, Tubal Ligation Respiratory: No Cardiac: No Neurological: No Female Reproductive Disorders: Menstrual Problems [employer]AT [employer] History: Tubal Ligation Genitourinary: No Gastrointestinal: No Musculoskeletal: No Endocrine: No HEENT: No Cancer: No Psychosocial: Yes Anxiety, Depression Integumentary: No Blood Disorders: No Physical Exam Height, Weight, BMI Height: 5'3.00" Weight: 160lbs. oz. 72.009640dz; 30.00 BMI Method:Stated General Appearance: WD/WN, no apparent distress Eyes: bilateral eye PERRL, bilateral eye EOMI Mouth/Throat: dental tenderness (Has had most of her teeth removed or fallen out. She does have the front teeth on the mandible. She has pain to the left side of these few teeth that she has remaining. There is widespread decay and the teeth are showing some mild erythema and swelling around the gumline.) Neck: non-tender, full range of motion, supple, normal inspection Cardiovascular: normal peripheral pulses, regular rate, rhythm Respiratory: chest non-tender, lungs clear Neurologic/Psychiatric: alert, oriented x 3 Skin: warm/dry Progress/Results/Core Measures Progress Progress Note : Progress Note Potential diagnosis of dental decay, dental caries with infection, dental abscess, chronic dental pain. With her already taking hksz-dpk-iwinijd meds and not having improvement will prescribe hydrocodone 7.5/325 1 every 4 hours as needed for severe pain and send prescription for 5 days with 24 October holiday coming up. Also prescribed Augmentin 875 twice daily for 10 days for dental infection and ibuprofen 600 mg every 6 hours as needed for pain and inflammation. Encouraged to work with her primary care provider and dentist to help keep her pain under control treat for any further infection. Keep appointment on October 31 with the dentist. Also given phone number listed for general dental providers. I did review her prescription history on the PDMP website and she had not had any controlled substances prescribed since 2020 when she had some Hydrocodone/APAP 7.5/[address] Cruz. Counselled to take laxative for constipation while taking narcotic. Departure Impression Primary Impression: Pain due to dental caries Additional Impression: Dental infection Disposition: 01 HOME, SELF-CARE Condition: Stable Departure-Patient Inst. Decision time for Depature: 14:06 Referrals: MAITE AGUERO MD (PCP/Family) Primary Care Physician [facility] Patient Instructions: Tooth Decay ED, Tooth Abscess ED, Dental Pain ED Add. Discharge Instructions: Take the full course of antibiotics to try and help with the infection which may be worsening the dental pain. He could also take ibuprofen 600 mg every 6 hours to help with pain and inflammation. For severe pain you could try taking the hydrocodone/acetaminophen 7.5/325 1 every 4 hours as needed for severe pain. While taking the narcotic consider taking a laxative to try and help prevent constipation. Work with your primary care provider as well as dentist to help control your pain and keep your follow-up appointment on October 31. All discharge instructions reviewed with patient and/or family. Voiced understanding. Scripts Hydrocodone/Acetaminophen (Hydrocodone-Acetamin 7.5-325) 7.5 Mg-325 Mg Tablet 1 EACH PO Q4H PRN for PAIN-SEVERE (8-10) for 5 Days, #30 TAB 0 Refills Prov: MICK MONTES MD 10/18/22 Ibuprofen (Ibuprofen) 600 Mg Tablet 600 MG PO Q6H PRN for PAIN-SEVERE (8-10) for 10 Days, #40 TAB 0 Refills Prov: MICK MONTES MD 10/18/22 Amoxicillin/Potassium Clav (Amox Tr-K Clv 875-125 mg Tab) 875 Mg-125 Mg Tablet 1 EACH PO BID for dental infection for 10 Days, #20 TAB 0 Refills Prov: MICK MONTES MD 10/18/22 MICK MONTES MD Oct 18, 2022 14:10
== END 2022-10-18 14:15 | disposition home or self-care (01) ==
LOC: EDUNIT# 13:56 → ER FS 13:57
DX: K02.9 Dental caries, unspecified (principal); K04.7 Periapical abscess without sinus; F17.210 Nicotine dependence, cigarettes, uncomplicated
CPT/HCPCS: 99282

== ENCOUNTER 2022-12-06 19:53 | Emergency (ER) | payer MEDICAID ==
[~2022-12-06] VITALS: Ht 160 cm; Wt 83.9 kg
[~2022-12-06 19:53] MED LIST changes: +AMOX1TAB12 PO; +HYDR-3817 PO; +IBUP-1773 PO
[2022-12-06 19:56] VITALS: BP 113/66
--- NOTE | 2022-12-06 20:36 | Diagnostic Imaging Report ---
EXAM: Ankle 3 view left. INDICATION: Trauma. Ankle injury and pain. COMPARISON: Fall. None. FINDINGS: No fracture or malalignment. Soft tissue shadows are unremarkable. IMPRESSION: No acute radiographic finding in the left ankle. Dictated by: Dictated on workstation # [id number]
--- NOTE | 2022-12-06 21:44 | ED Lower Extremity ---
General Chief Complaint: Lower Extremity Stated Complaint: L ANKLE PAIN Nursing Triage Note: Patient to ER via wc c/o left ankle pain. Patient states she was climbing a fence and jumped down 2ft onto her left foot approx 1935 today. Patient felt her ankle "pop" and states she "passed out for a few seconds." denies hitting head. toes 2-5 tingling/numb. Source: patient Exam Limitations: no limitations History of Present Illness Date Seen by Provider: Dec 06, 2022 Time Seen by Provider: 20:15 Initial Comments This 42-year-old woman presents to the emergency room with a left ankle injury. She was climbing up on a privacy fence to retrieve a toy. She jumped off the rail from about a 3 foot height. When she landed, she rolled her left ankle. She heard/felt a pop and had sudden extreme pain. She believes that she "blacked out" for a few seconds as she went to the ground. She denies any head or neck injury. She denies any symptoms of concussion at this time. She has significant swelling of the left lateral ankle and difficulty ambulating. She has a numbness in her for lesser toes. Allergies and Home Medications Allergies Coded Allergies: No Known Drug Allergies (Unverified , 11/30/20) Patient Home Medication List Home Medication List Reviewed: Yes Amoxicillin/Potassium Clav (Amox Tr-K Clv 875-125 mg Tab) 875 Mg-125 Mg Tablet, 1 EACH PO BID Prescribed by: MICK MONTES on 10/18/22 1408 Citalopram Hydrobromide (Citalopram HBr) 40 Mg Tablet, 40 MG PO DAILY, (Reported) Entered as Reported by: MAITE ELIZONDO on 11/30/20 1239 Docusate Sodium (Dok) 100 Mg Capsule, 100 MG PO BID PRN for CONSTIPATION-1ST LINE Prescribed by: KATIE TURNER on 12/06/20 1014 Hydrocodone Bit/Acetaminophen (HYDROcodone/APAP 7.5/325 TAB) 1 Ea Tablet, 1-2 EA PO Q6HR PRN for PAIN-MODERATE (5-7) Prescribed by: KATIE TURNER on 12/06/20 1015 Hydrocodone/Acetaminophen (Hydrocodone-Acetamin 7.5-325) 7.5 Mg-325 Mg Tablet, 1 EACH PO Q4H PRN for PAIN-SEVERE (8-10) Prescribed by: MICK MONTES on 10/18/22 1409 Ibuprofen (Ibu) 600 Mg Tablet, 600 MG PO Q6HR PRN for PAIN-MILD (1-4) Prescribed by: KATIE TURNER on 12/06/20 1014 Ibuprofen (Ibuprofen) 600 Mg Tablet, 600 MG PO Q6H PRN for PAIN-SEVERE (8-10) Prescribed by: MICK MONTES on 10/18/22 1408 Nitrofurantoin Macrocrystal (Nitrofurantoin) 100 Mg Capsule, 100 MG PO BID Prescribed by: RAYSA DELACRUZ on 04/05/21 1938 Simethicone (Mi-Acid) 80 Mg Tab.chew, 40 MG PO TID PRN for INDIGESTION 2ND LINE Prescribed by: KATIE TURNER on 12/06/20 1014 Review of Systems Constitutional: no symptoms reported EENTM: no symptoms reported Respiratory: no symptoms reported Cardiovascular: no symptoms reported Gastrointestinal: no symptoms reported Genitourinary: no symptoms reported : No Musculoskeletal: see HPI Skin: no symptoms reported Psychiatric/Neurological: No Symptoms Reported Past [id number]-Tiriel Hx Patient Social History Tobacco Use?: Yes Tobacco type used: Cigarettes Smoking Status: Current Everyday Smoker Substance use?: No Alcohol Use?: No Seasonal Allergies Seasonal Allergies: Yes Past Medical History Surgeries: Yes (DENTAL) Appendectomy, Gallbladder, Hysterectomy, Oophorectomy, Tonsillectomy, Tubal Li gation Respiratory: No Cardiac: No Neurological: No Female Reproductive Disorders: Menstrual Problems [employer] History: Tubal Ligation Genitourinary: No Gastrointestinal: No Musculoskeletal: No Endocrine: No HEENT: No Cancer: No Psychosocial: Yes Anxiety, Depression Integumentary: No Blood Disorders: No Physical Exam Vital Signs Vital Signs - First Documented 12/06/22 19:56 Temp 36.6 Pulse 99 Resp 18 B/P (MAP) 113/66 (82) Pulse Ox 95 O2 Delivery Room Air Capillary Refill : Less Than 3 Seconds Height, Weight, BMI Height: 5'3.00" Weight: 160lbs. oz. [id number]; 32.00 BMI Method:Stated General Appearance: WD/WN, mild distress HEENT: normal ENT inspection Neck: normal inspection Cardiovascular: regular rate, rhythm, no edema, no murmur Respiratory: lungs clear, normal breath sounds, no respiratory distress Legs: left leg non-tender, left leg normal inspection, left leg normal range of motion, left leg no evidence of injury Knees: left knee non-tender, left knee normal inspection, left knee normal range of motion, left knee no evidence of injury Ankles: left ankle bone tenderness, left ankle deformity, left ankle limited range of motion, left ankle pain, left ankle swelling, left ankle other (Findings are over the lateral ankle) Feet: left foot non-tender, left foot normal inspection, left foot normal range of motion, left foot no evidence of injury, left foot other (Sensation, capillary refill, and movement retained in the toes. Normal dorsal pedal pulse. No tenderness along the lateral foot.) Progress/Results/Core Measures Results/Orders My Orders Orders - LAWSON MALONE MD Ankle 3 View Left (12/06/22 20:21) Jag Bandage (12/06/22 21:52) Crutches (12/06/22 21:52) Vital Signs/I&O 12/06/22 19:56 Temp 36.6 Pulse 99 Resp 18 B/P (MAP) 113/66 (82) Pulse Ox 95 O2 Delivery Room Air Blood Pressure Mean: 82 Progress Progress Note : Progress Note Patient was interviewed and examined at 2014. X-rays were ordered. X-ray films were reviewed by me and no bony injuries were identified by my interpretation. Radiologist's report was reviewed as below as well. Patient was diagnosed with ankle sprain. Jag bandage was applied and crutches were dispensed. She has a boot at home that she can use as well. See discharge instructions for further discussion. She declined pain medication. Departure Impression Primary Impression: Left ankle sprain Qualified Codes: S93.402A - Sprain of unspecified ligament of left ankle, initial encounter Disposition: HOME, SELF-CARE Condition: Improved Departure-Patient Inst. Decision time for Depature: 22:00 Referrals: MAITE AGUERO MD (PCP/Family) Primary Care Physician Patient Instructions: Ankle Sprain ED, Ankle Strengthening Exercises Add. Discharge Instructions: Rest, elevation, 20-minute intervals of icing, and compressive wrapping should help reduce pain and swelling. When elevating, be sure your foot is level with or higher than your knee. For pain you may take ibuprofen up to 600 mg every 6 hours as needed and/or Tylenol (acetaminophen) up to 1000 mg every 6 hours as needed. Use crutches as needed to ambulate. Gradually increase level of activity as pain and swelling allows. Use a boot or supportive brace anytime you are active in a manner that could result in repeat injury to the ankle for the next 6 weeks. Reinjuring the ankle during the healing process could cause severe long-term injury to the ligaments. Use a brace or boot to support the ankle during this healing. If you are not improving and healing rapidly over the next 1 to 2 weeks as expected, please follow-up with your primary care provider or an orthopedist as soon as possible. All discharge instructions reviewed with patient and/or family. Voiced understanding. Copy Copies To 1: MAITE AGUERO MD, JOSHUA T MD Dec 06, 2022 21:44
== END 2022-12-06 21:40 | disposition home or self-care (01) ==
LOC: EDUNIT# 19:53 → ER FS 19:55
DX: S93.402A Sprain of unspecified ligament of left ankle, initial encounter (principal); F17.210 Nicotine dependence, cigarettes, uncomplicated; X50.1XXA Overexertion from prolonged static or awkward postures, initial encounter; Y93.39 Activity, other involving climbing, rappelling and jumping off
CPT/HCPCS: 73610